=== PATIENT | male | born 1945 | race Caucasian/White ===

== ENCOUNTER 2018-01-11 18:51 | Inpatient (IN) ==
[~2018-01-11 18:51] MED LIST: Iohexol 350 MG/ML 100 ML Vial (for Cath Lab) IVCONTRAST ONE
[2018-01-11] MEDS ORDERED: Sodium Chlor 0.9% Inj 500 ML IV.SIG ONE (19:05)
[2018-01-11] MEDS ORDERED: Morphine Inj 4 MG/ML Vial IV.PUSH ONE (19:05)
[2018-01-11] MEDS ORDERED: Heparin 10,000 UNITS/10 ML Vial (for IV use) IV.PUSH ONE (19:21)
[2018-01-11] MEDS ORDERED: Nitroglycerin Drip Premix 50 MG/250 ML BOTTLE IV.CONT PRN (19:22)
[2018-01-11 19:32] LABS: Chloride 101 meq/L (98-107); Potassium 4.2 meq/L (3.5-5.1); Sodium 133 meq/L (136-145)
[2018-01-11 19:35] LABS: Calcium 8.5 mg/dL (8.5-10.1)
[2018-01-11 19:36] LABS: Albumin 3.4 g/dL (3.4-5.0); Anion Gap 7 meq/L (5-15); Blood Urea Nitrogen 8 mg/dL (7-18); Carbon Dioxide 25.1 meq/L (21.0-32.0); Glucose,Random 293 mg/dL (74-106)
[2018-01-11 19:39] LABS: Alanine Aminotransferase 28 U/L (12-78); Aspartate Aminotransferase 32 U/L (15-37); Glomerular Filtration Rate 73 mL/min (>89)
[2018-01-11 19:40] LABS: Total Protein 7.6 g/dL (6.4-8.2)
--- NOTE | 2018-01-11 19:40 | ED ---
HPI General Chief Complaint: Chest Pain Stated Complaint: chest pain Time Seen by Provider: 01/11/18 19:20 Source: patient Mode of arrival: ambulatory Limitations: no limitations History of Present Illness HPI narrative: 72-year-old male came to the emergency room along with his family with history of severe substernal chest pain that has been continuously going on for past 4 hours. Patient describes the pain as "2 cinderblocks thumping on his chest". He says the pain is there at rest. He has been having similar pain off and on for past 2-3 days. Initially they would occur spontaneously and go away but this time it continued on. No radiation of the pain. No aggravating or relieving symptoms identified. No associated symptoms like shortness of breath, diaphoresis, nausea or vomiting. Patient has history of diabetes and is supposed to take metformin but has not taken it for many months. He does not know of any other medical problems. His blood pressure upon arrival was 190 systolic. Patient moved from [place] [facility]. His last stress test was 10-15 years ago. No known coronary artery disease history. Patient is a smoker 1 pack/day for 50 years. complaint: Reports chest pain STEMI Alert: Yes Onset (ago): hour(s) Time: 19:02 Duration: constant Onset: during rest Pain location: Reports substernal Severity: severe Severity scale (1-10): 6 Quality: Reports dull Pain radiation: Reports none Relieving factors: nothing Exacerbating factors: nothing Context: Reports other Associated symptoms: Reports other Treatments prior to arrival chest pain: Reports none Related Data Home Medications Medication Instructions Recorded Confirmed No Known Home Medications 01/11/18 01/11/18 Allergies Allergy/AdvReac Type Severity Reaction Status Date / Time No Known Allergies Allergy Verified 01/11/18 19:02 Review of Systems ROS: all other systems reviewed are negative Cardiovascular Reports chest pain PMFSH Medical History Medical History Hx of diabetes mellitus (Acute) Surgical History Surgical History Hx of knee surgery (Acute) Hx of tonsillectomy (Acute) Family History Family History Father Family history of acute myocardial infarction Social History Social History Substance History: No History of Abuse Second Hand Smoke Exposure: Yes Smoking Status: Current every day smoker Tobacco Type: Cigarettes How Often Do You Have a Drink Containing Alcohol: 2 to 4 times a month Recent Travel in [facility] within the Last 8 Weeks: No Recent Out of Country Travel within the Last 8 Weeks: No Immunization History Tetanus Immunization: Unsure Exam Narrative Exam Narrative: GENERAL: Awake, alert, anxious, moderate distress SKIN: Focused skin assessment warm/dry. HEAD: Atraumatic. Normocephalic. EYES: Pupils equal and round. No scleral icterus. No injection or drainage. ENT: No nasal bleeding or discharge. Mucous membranes pink and moist. NECK: Trachea midline. No JVD. CARDIOVASCULAR: Regular rate and rhythm. No murmur appreciated. RESPIRATORY: No accessory muscle use. Clear to auscultation. Breath sounds equal bilaterally. GASTROINTESTINAL: Abdomen soft, non-tender, nondistended. Hepatic and splenic margins not palpable. MUSCULOSKELETAL: No obvious deformities. No clubbing. No cyanosis. No edema. NEUROLOGICAL: Awake and alert. No obvious cranial nerve deficits. Motor grossly within normal limits. Normal speech. PSYCHIATRIC: Appropriate mood and affect; insight and judgment normal. Course Initial Documented Vital Signs Temperature 97.6 F 01/11/18 18:56 Pulse Rate 88 01/11/18 18:56 Respiratory Rate 18 01/11/18 18:56 Blood Pressure 189/104 H 01/11/18 18:56 Pulse Oximetry 97 01/11/18 18:56 Last Documented Vital Signs Temperature 98.0 F 01/14/18 16:00 Pulse Rate 63 01/14/18 18:00 Respiratory Rate 16 01/14/18 16:00 Blood Pressure 132/55 L 01/14/18 16:00 Pulse Oximetry 97 01/14/18 19:29 Critical Care Time Critical Care Time: Yes Total Critical Care Time: 45 Attestation: Aggregate critical care time was 45 minutes. Time to perform other separately billable procedures was not included in the critical care time. My time did not include minutes spent treating any other patients simultaneously or on activities that did not directly contribute to the patient's treatment. The services I provided to this patient were to treat and/or prevent clinically significant deterioration that could result in: STEMI alert I provided critical care services requiring my management, as noted below: Chart data review, documentation time, medication orders and management, vital sign assessments/reviewing monitor data, ordering and reviewing lab tests, ordering and interpreting/reviewing x-rays and diagnostic studies, care of the patient and discussion of the patient with the admitting physicians. Medical Decision Making MDM Narrative Medical decision making narrative: 7:55 PM based on the initial EKG I discussed with the central supply tech immediately. It was Dr. Metz who was on for STEMI. I expressed to him my concern regarding an inferior and a possible posterior STEMI. After looking at the EKG which was electronically transmitted to him he agreed and asked to call a STEMI alert. Patient was given 2 baby aspirins and 1 sublingual nitro. After that his chest pain significantly improved and was down to 1. Blood pressure was 155 systolic. He was started on a nitro drip and EMS was called for emergent transfer to the Lead Systems Engineer. Patient for a brief 10 minutes went into atrial flutter with 2 is to 1 block. I had ordered a bolus of 15 mg of Cardizem but before it was pushed patient spontaneously changed into normal sinus rhythm. Patient was sent emergently to the [facility] Systems [facility]. He remained hemodynamically stable and GCS of 15. Patient and his family was informed about his condition and the plan and I answered all the questions to the best of my ability. Medical Screen Exam Complete: Yes Emergency Medical Condition: Yes Lab Data Result diagrams: 01/12/18 13:32 01/12/18 13:32 Lab Results 01/11/18 01/11/18 01/11/18 Range/Units 19:15 19:15 19:15 CBC w Diff Auto diff final WBC 10.1 (4.0-11.0) th/mm3 RBC 4.84 (4.50-5.90) mil/mm3 Hgb 15.2 (13.0-17.0) gm/dL Hct 43.8 (39.0-51.0) % MCV 90.5 (80.0-100.0) fL MCH 31.4 (27.0-34.0) pg MCHC 34.7 (32.0-36.0) % RDW 12.4 (11.6-17.2) % Plt Count 352 (150-450) th/mm3 MPV 9.4 (7.0-11.0) fL Neut % (Auto) 65.6 (16.0-70.0) % Lymph % (Auto) 23.0 (9.0-44.0) % Amador % (Auto) 8.9 H (0.0-8.0) % Eos % (Auto) 1.3 (0.0-4.0) % Baso % (Auto) 1.2 (0.0-2.0) % Neut # (Auto) 6.8 (1.8-7.7) th/mm3 Lymph # (Auto) 2.3 (1.0-4.8) th/mm3 Amador # (Auto) 0.9 (0.0-0.9) th/mm3 Eos # (Auto) 0.1 (0.0-0.4) th/mm3 Baso # (Auto) 0.1 (0.0-0.2) th/mm3 WBC Differential . Differential Comment . PT 10.6 (9.8-11.6) sec INR 1.0 Ratio APTT 27.8 (24.3-30.1) sec Sodium (136-145) meq/L Potassium (3.5-5.1) meq/L Chloride (98-107) meq/L Carbon Dioxide (21.0-32.0) meq/L Anion Gap (5-15) meq/L BUN (7-18) mg/dL Creatinine (0.60-1.30) mg/dL Estimated GFR (>89) mL/min POC Glucose (68-110) mg/dl Random Glucose (74-106) mg/dL Hemoglobin A1c (4.3-6.0) % Calcium (8.5-10.1) mg/dL Magnesium (1.5-2.5) mg/dL Total Bilirubin (0.2-1.0) mg/dL AST (15-37) U/L ALT (12-78) U/L Alkaline Phosphatase (45-117) U/L Total Creatine Kinase (39-308) U/L CK-MB (CK-2) (0.5-3.6) ng/mL Troponin I (0.02-0.05) ng/mL B-Natriuretic Peptide 45 (0-100) pg/mL Total Protein (6.4-8.2) g/dL Albumin (3.4-5.0) g/dL Triglycerides (42-150) mg/dL Cholesterol (120-200) mg/dL LDL Cholesterol, Calc (0-99) mg/dL HDL Cholesterol (40.0-60.0) mg/dL Cholesterol/HDL Ratio Ratio 01/11/18 01/12/18 01/12/18 Range/Units 19:15 08:46 13:32 CBC w Diff WBC 8.7 (4.0-11.0) th/mm3 RBC 4.02 L (4.50-5.90) mil/mm3 Hgb 12.6 L D (13.0-17.0) gm/dL Hct 37.0 L (39.0-51.0) % MCV 92.0 (80.0-100.0) fL MCH 31.4 (27.0-34.0) pg MCHC 34.1 (32.0-36.0) % RDW 13.1 (11.6-17.2) % Plt Count 261 (150-450) th/mm3 MPV 8.8 (7.0-11.0) fL Neut % (Auto) 60.2 (16.0-70.0) % Lymph % (Auto) 27.8 (9.0-44.0) % Amador % (Auto) 10.2 H (0.0-8.0) % Eos % (Auto) 1.3 (0.0-4.0) % Baso % (Auto) 0.5 (0.0-2.0) % Neut # (Auto) 5.2 (1.8-7.7) th/mm3 Lymph # (Auto) 2.4 (1.0-4.8) th/mm3 Amador # (Auto) 0.9 (0.0-0.9) th/mm3 Eos # (Auto) 0.1 (0.0-0.4) th/mm3 Baso # (Auto) 0.0 (0.0-0.2) th/mm3 WBC Differential . Differential Comment Auto diff final PT (9.8-11.6) sec INR Ratio APTT (24.3-30.1) sec Sodium 133 L (136-145) meq/L Potassium 4.2 (3.5-5.1) meq/L Chloride 101 (98-107) meq/L Carbon Dioxide 25.1 (21.0-32.0) meq/L Anion Gap 7 (5-15) meq/L BUN 8 (7-18) mg/dL Creatinine 1.00 (0.60-1.30) mg/dL Estimated GFR 73 L (>89) mL/min POC Glucose 240 H (68-110) mg/dl Random Glucose 293 H (74-106) mg/dL Hemoglobin A1c (4.3-6.0) % Calcium 8.5 (8.5-10.1) mg/dL Magnesium (1.5-2.5) mg/dL Total Bilirubin 0.3 (0.2-1.0) mg/dL AST 32 (15-37) U/L ALT 28 (12-78) U/L Alkaline Phosphatase 64 (45-117) U/L Total Creatine Kinase 208 (39-308) U/L CK-MB (CK-2) 15.1 H (0.5-3.6) ng/mL Troponin I 1.26 H* (0.02-0.05) ng/mL B-Natriuretic Peptide (0-100) pg/mL Total Protein 7.6 (6.4-8.2) g/dL Albumin 3.4 (3.4-5.0) g/dL Triglycerides (42-150) mg/dL Cholesterol (120-200) mg/dL LDL Cholesterol, Calc (0-99) mg/dL HDL Cholesterol (40.0-60.0) mg/dL Cholesterol/HDL Ratio Ratio 01/12/18 01/12/18 01/12/18 Range/Units 13:32 13:32 22:08 CBC w Diff WBC (4.0-11.0) th/mm3 RBC (4.50-5.90) mil/mm3 Hgb (13.0-17.0) gm/dL Hct (39.0-51.0) % MCV (80.0-100.0) fL MCH (27.0-34.0) pg MCHC (32.0-36.0) % RDW (11.6-17.2) % Plt Count (150-450) th/mm3 MPV (7.0-11.0) fL Neut % (Auto) (16.0-70.0) % Lymph % (Auto) (9.0-44.0) % Amador % (Auto) (0.0-8.0) % Eos % (Auto) (0.0-4.0) % Baso % (Auto) (0.0-2.0) % Neut # (Auto) (1.8-7.7) th/mm3 Lymph # (Auto) (1.0-4.8) th/mm3 Amador # (Auto) (0.0-0.9) th/mm3 Eos # (Auto) (0.0-0.4) th/mm3 Baso # (Auto) (0.0-0.2) th/mm3 WBC Differential Differential Comment PT (9.8-11.6) sec INR Ratio APTT (24.3-30.1) sec Sodium 138 (136-145) meq/L Potassium 4.1 (3.5-5.1) meq/L Chloride 108 H (98-107) meq/L Carbon Dioxide 24.1 (21.0-32.0) meq/L Anion Gap 6 (5-15) meq/L BUN 6 L (7-18) mg/dL Creatinine 0.92 (0.60-1.30) mg/dL Estimated GFR 81 L (>89) mL/min POC Glucose 196 H (68-110) mg/dl Random Glucose 246 H (74-106) mg/dL Hemoglobin A1c (4.3-6.0) % Calcium 7.7 L D (8.5-10.1) mg/dL Magnesium 1.8 (1.5-2.5) mg/dL Total Bilirubin (0.2-1.0) mg/dL AST (15-37) U/L ALT (12-78) U/L Alkaline Phosphatase (45-117) U/L Total Creatine Kinase (39-308) U/L CK-MB (CK-2) (0.5-3.6) ng/mL Troponin I (0.02-0.05) ng/mL B-Natriuretic Peptide (0-100) pg/mL Total Protein (6.4-8.2) g/dL Albumin (3.4-5.0) g/dL Triglycerides 173 H (42-150) mg/dL Cholesterol 140 (120-200) mg/dL LDL Cholesterol, Calc 75 (0-99) mg/dL HDL Cholesterol 30.3 L (40.0-60.0) mg/dL Cholesterol/HDL Ratio 4.62 Ratio 01/13/18 01/13/18 01/13/18 Range/Units 02:49 07:56 11:57 CBC w Diff WBC (4.0-11.0) th/mm3 RBC (4.50-5.90) mil/mm3 Hgb (13.0-17.0) gm/dL Hct (39.0-51.0) % MCV (80.0-100.0) fL MCH (27.0-34.0) pg MCHC (32.0-36.0) % RDW (11.6-17.2) % Plt Count (150-450) th/mm3 MPV (7.0-11.0) fL Neut % (Auto) (16.0-70.0) % Lymph % (Auto) (9.0-44.0) % Amador % (Auto) (0.0-8.0) % Eos % (Auto) (0.0-4.0) % Baso % (Auto) (0.0-2.0) % Neut # (Auto) (1.8-7.7) th/mm3 Lymph # (Auto) (1.0-4.8) th/mm3 Amador # (Auto) (0.0-0.9) th/mm3 Eos # (Auto) (0.0-0.4) th/mm3 Baso # (Auto) (0.0-0.2) th/mm3 WBC Differential Differential Comment PT (9.8-11.6) sec INR Ratio APTT (24.3-30.1) sec Sodium (136-145) meq/L Potassium (3.5-5.1) meq/L Chloride (98-107) meq/L Carbon Dioxide (21.0-32.0) meq/L Anion Gap (5-15) meq/L BUN (7-18) mg/dL Creatinine (0.60-1.30) mg/dL Estimated GFR (>89) mL/min POC Glucose 176 H 208 H 201 H (68-110) mg/dl Random Glucose (74-106) mg/dL Hemoglobin A1c (4.3-6.0) % Calcium (8.5-10.1) mg/dL Magnesium (1.5-2.5) mg/dL Total Bilirubin (0.2-1.0) mg/dL AST (15-37) U/L ALT (12-78) U/L Alkaline Phosphatase (45-117) U/L Total Creatine Kinase (39-308) U/L CK-MB (CK-2) (0.5-3.6) ng/mL Troponin I (0.02-0.05) ng/mL B-Natriuretic Peptide (0-100) pg/mL Total Protein (6.4-8.2) g/dL Albumin (3.4-5.0) g/dL Triglycerides (42-150) mg/dL Cholesterol (120-200) mg/dL LDL Cholesterol, Calc (0-99) mg/dL HDL Cholesterol (40.0-60.0) mg/dL Cholesterol/HDL Ratio Ratio 01/13/18 01/13/18 01/13/18 Range/Units 16:00 16:14 21:05 CBC w Diff WBC (4.0-11.0) th/mm3 RBC (4.50-5.90) mil/mm3 Hgb (13.0-17.0) gm/dL Hct (39.0-51.0) % MCV (80.0-100.0) fL MCH (27.0-34.0) pg MCHC (32.0-36.0) % RDW (11.6-17.2) % Plt Count (150-450) th/mm3 MPV (7.0-11.0) fL Neut % (Auto) (16.0-70.0) % Lymph % (Auto) (9.0-44.0) % Amador % (Auto) (0.0-8.0) % Eos % (Auto) (0.0-4.0) % Baso % (Auto) (0.0-2.0) % Neut # (Auto) (1.8-7.7) th/mm3 Lymph # (Auto) (1.0-4.8) th/mm3 Amador # (Auto) (0.0-0.9) th/mm3 Eos # (Auto) (0.0-0.4) th/mm3 Baso # (Auto) (0.0-0.2) th/mm3 WBC Differential Differential Comment PT (9.8-11.6) sec INR Ratio APTT (24.3-30.1) sec Sodium (136-145) meq/L Potassium (3.5-5.1) meq/L Chloride (98-107) meq/L Carbon Dioxide (21.0-32.0) meq/L Anion Gap (5-15) meq/L BUN (7-18) mg/dL Creatinine (0.60-1.30) mg/dL Estimated GFR (>89) mL/min POC Glucose 130 H 218 H (68-110) mg/dl Random Glucose (74-106) mg/dL Hemoglobin A1c 9.3 H (4.3-6.0) % Calcium (8.5-10.1) mg/dL Magnesium (1.5-2.5) mg/dL Total Bilirubin (0.2-1.0) mg/dL AST (15-37) U/L ALT (12-78) U/L Alkaline Phosphatase (45-117) U/L Total Creatine Kinase (39-308) U/L CK-MB (CK-2) (0.5-3.6) ng/mL Troponin I (0.02-0.05) ng/mL B-Natriuretic Peptide (0-100) pg/mL Total Protein (6.4-8.2) g/dL Albumin (3.4-5.0) g/dL Triglycerides (42-150) mg/dL Cholesterol (120-200) mg/dL LDL Cholesterol, Calc (0-99) mg/dL HDL Cholesterol (40.0-60.0) mg/dL Cholesterol/HDL Ratio Ratio 01/14/18 01/14/18 01/14/18 Range/Units 03:51 08:17 11:12 CBC w Diff WBC (4.0-11.0) th/mm3 RBC (4.50-5.90) mil/mm3 Hgb (13.0-17.0) gm/dL Hct (39.0-51.0) % MCV (80.0-100.0) fL MCH (27.0-34.0) pg MCHC (32.0-36.0) % RDW (11.6-17.2) % Plt Count (150-450) th/mm3 MPV (7.0-11.0) fL Neut % (Auto) (16.0-70.0) % Lymph % (Auto) (9.0-44.0) % Amador % (Auto) (0.0-8.0) % Eos % (Auto) (0.0-4.0) % Baso % (Auto) (0.0-2.0) % Neut # (Auto) (1.8-7.7) th/mm3 Lymph # (Auto) (1.0-4.8) th/mm3 Amador # (Auto) (0.0-0.9) th/mm3 Eos # (Auto) (0.0-0.4) th/mm3 Baso # (Auto) (0.0-0.2) th/mm3 WBC Differential Differential Comment PT (9.8-11.6) sec INR Ratio APTT (24.3-30.1) sec Sodium (136-145) meq/L Potassium (3.5-5.1) meq/L Chloride (98-107) meq/L Carbon Dioxide (21.0-32.0) meq/L Anion Gap (5-15) meq/L BUN (7-18) mg/dL Creatinine (0.60-1.30) mg/dL Estimated GFR (>89) mL/min POC Glucose 129 H 200 H 172 H (68-110) mg/dl Random Glucose (74-106) mg/dL Hemoglobin A1c (4.3-6.0) % Calcium (8.5-10.1) mg/dL Magnesium (1.5-2.5) mg/dL Total Bilirubin (0.2-1.0) mg/dL AST (15-37) U/L ALT (12-78) U/L Alkaline Phosphatase (45-117) U/L Total Creatine Kinase (39-308) U/L CK-MB (CK-2) (0.5-3.6) ng/mL Troponin I (0.02-0.05) ng/mL B-Natriuretic Peptide (0-100) pg/mL Total Protein (6.4-8.2) g/dL Albumin (3.4-5.0) g/dL Triglycerides (42-150) mg/dL Cholesterol (120-200) mg/dL LDL Cholesterol, Calc (0-99) mg/dL HDL Cholesterol (40.0-60.0) mg/dL Cholesterol/HDL Ratio Ratio 01/14/18 01/14/18 Range/Units 15:28 20:43 CBC w Diff WBC (4.0-11.0) th/mm3 RBC (4.50-5.90) mil/mm3 Hgb (13.0-17.0) gm/dL Hct (39.0-51.0) % MCV (80.0-100.0) fL MCH (27.0-34.0) pg MCHC (32.0-36.0) % RDW (11.6-17.2) % Plt Count (150-450) th/mm3 MPV (7.0-11.0) fL Neut % (Auto) (16.0-70.0) % Lymph % (Auto) (9.0-44.0) % Amador % (Auto) (0.0-8.0) % Eos % (Auto) (0.0-4.0) % Baso % (Auto) (0.0-2.0) % Neut # (Auto) (1.8-7.7) th/mm3 Lymph # (Auto) (1.0-4.8) th/mm3 Amador # (Auto) (0.0-0.9) th/mm3 Eos # (Auto) (0.0-0.4) th/mm3 Baso # (Auto) (0.0-0.2) th/mm3 WBC Differential Differential Comment PT (9.8-11.6) sec INR Ratio APTT (24.3-30.1) sec Sodium (136-145) meq/L Potassium (3.5-5.1) meq/L Chloride (98-107) meq/L Carbon Dioxide (21.0-32.0) meq/L Anion Gap (5-15) meq/L BUN (7-18) mg/dL Creatinine (0.60-1.30) mg/dL Estimated GFR (>89) mL/min POC Glucose 92 119 H (68-110) mg/dl Random Glucose (74-106) mg/dL Hemoglobin A1c (4.3-6.0) % Calcium (8.5-10.1) mg/dL Magnesium (1.5-2.5) mg/dL Total Bilirubin (0.2-1.0) mg/dL AST (15-37) U/L ALT (12-78) U/L Alkaline Phosphatase (45-117) U/L Total Creatine Kinase (39-308) U/L CK-MB (CK-2) (0.5-3.6) ng/mL Troponin I (0.02-0.05) ng/mL B-Natriuretic Peptide (0-100) pg/mL Total Protein (6.4-8.2) g/dL Albumin (3.4-5.0) g/dL Triglycerides (42-150) mg/dL Cholesterol (120-200) mg/dL LDL Cholesterol, Calc (0-99) mg/dL HDL Cholesterol (40.0-60.0) mg/dL Cholesterol/HDL Ratio Ratio Imaging Data Radiologist's impression: Chest X-Ray 01/11/18 19:03 CONCLUSION: No infiltrate or effusion. Mild interstitial prominence. No prior study for comparison. ECG Data Attestation: I personally reviewed and interpreted this ECG as follows: Interpretation: Twelve-lead EKG was reviewed by me. Bigeminy, ST elevations in the inferior lead with reciprocal depressions in the anterior lateral leads. Heart rate of 65 bpm. Discharge Plan Discharge Disposition Patient Disposition: [facility] Patient Physicians Team ED Provider: Di Aguirre Primary Care Provider: UNKNOWN, Attending Provider: Estephanie Jeffrey Other Providers: Brad Metz Discharge Interventions Interventions: ED Discharge Assessment Last Done: 01/11/18 19:45 Status ED Status: Left Department Discharge Information Discharge Date/Time: 01/11/18 19:45
[2018-01-11 19:41] LABS: Activated Partial Thrombo Time 27.8 sec (24.3-30.1); Creatine Kinase 208 U/L (39-308); Prothrombin Time 10.6 sec (9.8-11.6)
[2018-01-11 19:42] LABS: Alkaline Phosphatase 64 U/L (45-117)
[2018-01-11 19:54] LABS: Creatine Kinase MB 15.1 ng/mL (0.5-3.6)
[2018-01-11] MEDS ORDERED: Heparin/NS PF Inj 1,000 ML ONE (19:55)
[2018-01-11 19:57] LABS: Baso # (Auto) 0.1 th/mm3 (0.0-0.2); Baso % (Auto) 1.2 % (0.0-2.0); Eos # (Auto) 0.1 th/mm3 (0.0-0.4); Eos % (Auto) 1.3 % (0.0-4.0); Hematocrit 43.8 % (39.0-51.0); Hemoglobin 15.2 gm/dL (13.0-17.0); Lymph # (Auto) 2.3 th/mm3 (1.0-4.8); Mean Corpuscular HGB Conc 34.7 % (32.0-36.0); Mean Corpuscular Hemoglobin 31.4 pg (27.0-34.0); Mean Corpuscular Volume 90.5 fL (80.0-100.0); Mean Platelet Volume 9.4 fL (7.0-11.0); Mono # (Auto) 0.9 th/mm3 (0.0-0.9); Mono % (Auto) 8.9 % (0.0-8.0); Neut # (Auto) 6.8 th/mm3 (1.8-7.7); Neut % (Auto) 65.6 % (16.0-70.0); Platelet Count 352 th/mm3 (150-450); Red Blood Count 4.84 mil/mm3 (4.50-5.90); Red Cell Distribution Width 12.4 % (11.6-17.2); White Blood Count 10.1 th/mm3 (4.0-11.0)
--- NOTE | 2018-01-11 19:57 | XR ---
EXAM DATE: 01/11/2018 7:29 PM EDT AGE/SEX: 72 years / Male INDICATIONS: Chest pain. CLINICAL DATA: This is the patient's initial encounter. Patient reports that signs and symptoms have been present for 1 day and indicates a pain score of 4/10. MEDICAL/SURGICAL HISTORY: None. None. COMPARISON: No prior exams available for comparison. FINDINGS: A single AP view of the chest demonstrates the lungs to be symmetrically aerated without evidence of mass, infiltrate or effusion. Mild interstitial prominence. Mild pleural thickening. The cardiomedias tinal contours are unremarkable. Osseous structures are intact. CONCLUSION: No infiltrate or effusion. Mild interstitial prominence. No prior study for comparison. Electronically signed by: All Veras MD 01/11/2018 7:56 PM EDT
[2018-01-11 19:58] LABS: Troponin I 1.26 ng/mL (0.02-0.05)
[2018-01-11] MEDS ORDERED: fentaNYL Citrate Inj 100 MCG/2 ML Ampul ONE (19:59)
[2018-01-11] MEDS ORDERED: Heparin 10,000 UNITS/10 ML Vial (for IV use) ONE (19:59)
[2018-01-11] MEDS ORDERED: TIROFIBAN ONE (20:47)
[2018-01-11] MEDS ORDERED: Temazepam 15 MG Capsule PO PRN (21:09)
[2018-01-11] MEDS ORDERED: oxyCODONE/Acetaminophen 10/325 Tablet PO PRN (21:09)
[2018-01-11] MEDS ORDERED: Acetaminophen 325 MG Tablet PO PRN (21:09)
--- NOTE | 2018-01-11 21:16 | MH ---
cc: Brad Metz MD DATE OF ADMISSION: 01/11/2018 ADMISSION DIAGNOSES: 1. Acute inferior ST segment elevation myocardial infarction. 2. Paroxysmal atrial flutter. 3. Type 2 diabetes mellitus. 4. Noncompliance with medications and physician followup. 5. Longstanding tobacco abuse. 6. Suspected interstitial lung disease. CHIEF COMPLAINT: Substernal chest pain. HISTORY OF PRESENT ILLNESS: This is a 72-year-old man, a chronic smoker, diabetic, noncompliant with medications, who moved here from [place] but has not followed up with any physicians and is not taking any of his medications. He describes the pain as 2 cinder block thumping on his chest. It has been going on and off for a few days and became constant today at about 5:30 p.m. Initial EKG in [place] shows sinus rhythm with ventricular bigeminy and acute inferior infarction. There are Q-waves that already have developed in the inferior leads with ST elevation inferiorly and reciprocal ST depression in I, aVL, but also V2 through V5, i.e., the only leads that do not show ST shifting are leads aVR, V1 and V6, making this a high risk infarct. Subsequent EKG shows atrial flutter with 2:[address] abnormalities are still present, but not as pronounced. He received nitroglycerin and aspirin prior to transfer. His chest pain was 1 en route. He has received a 5000 unit heparin bolus as well as chewable aspirin p.o. PAST MEDICAL HISTORY: Includes diabetes. He has been noncompliant with medications for 1-1/2 years. Chronic tobacco use, 1 pack a day for 50 years. Suspect interstitial lung disease from the chest x-ray. No prior history of hypertension, although blood pressure is noted to be elevated here. No prior history of arrhythmias, but has had palpitations in the last 24 hours and he has documented bigeminy and atrial flutter. 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 SOCIAL HISTORY: He has 1-2 drinks 2-4 times a month. He is with 3 children and multiple grandchildren. He smokes, as described above. FAMILY HISTORY: His father at 69 of heart disease. REVIEW OF SYSTEMS: Denies any bleeding of any kind, GI bleeding or bleeding. Remaining review of systems negative. PHYSICAL EXAMINATION: GENERAL: Well-developed, well-nourished man in no acute distress. HEENT: Male pattern balding. Atraumatic. NECK: Shows no JVD, no bruits. CHEST: Clear to auscultation. CARDIOVASCULAR: S1, S2. Regular rate and rhythm. I do not appreciate murmurs or gallops at this time. ABDOMEN: Soft, nontender. No masses or organomegaly. EXTREMITIES: No clubbing, cyanosis or edema. Pulses are intact. NEUROLOGIC: Alert and oriented. No focal deficits. PSYCHIATRIC: Appropriate mood and affect. LABORATORY DATA: CBC is still pending. INR and PTT are normal. Creatinine is 1.00. He has glucose elevated at 293. Troponin is pending. AST, ALT and alkaline phosphatase are normal. CPK is normal at 208. Chest x-ray formal reading is pending. By my reading, it shows normal heart size and increased interstitial markings. IMPRESSION: Acute inferior ST-elevation myocardial infarction. PLAN: Perform emergency cardiac catheterization and possible intervention. MD SUBHA Lin/akrrie , 08:15 PM , 08:24 PM
--- NOTE | 2018-01-11 21:18 | CATHPROC ---
[employer] HIS Report Study Information Study Number Admission Scheduled Start Study Start [id number] Jan 11 2018 6:51PM 01/11/2018 Jan 11 2018 8:00PM [facility] Service Cardiac Catheterization Admit Source Facility Department Transfer in from another acute care facility [facility] Consultant Physician and Clinical Staff Initial Brad Rice Making Machine Catcher Saida Ty Making Machine Catcher Myriam Estrada,RN Recorder Claire, Lizzy,DEPARTMENT OF MATHEMATICS CHAIR TECH2 Scrub Agnieszka Cantrell,RT(R) (BS) Procedures Performed Procedure Location (Site) Vessel Name Angiogram LV LV Ventricle Coronary Angiograms LCA Left Coronary Coronary Angiograms RCA Right Coronary Drug Eluting Inflatio CIRC Dist CIRC Wire insertion Radial (right) Radial Art. Equipment Time Fish Net Stringer Description Size Mfg Part Number Used/Scraped WIRE, BALANCE MIDDLEWEIGHT [id number] 20:28 [employer] 190CM Used 190CM *[id number] TRANSDUCER, TRUWAVE [id number] 20:23 HAGAN ERAZO * Used W/STOCKCOCK *[id number] *[id number] PIGTAIL ANG. 145 INFINITI 534-652S CATHETER *[id number] *[id number] 20:23 MALLINCKRODT SYRINGE, ANGIOMAT 150ML 150ML *[id number] Used 2SUB [id number] 20:23 Envivio BLANKET,WARM AIR CCL * Used *[id number] 20:23 Envivio PACK, CCL CUSTOM * Used *[id number] 20:23 Envivio SUPPORT, ARTERIAL ADULT 86050 *[id number] Used [id number] 20:23 Spinal Simplicity PACER PEN, SKIN DUAL W/ RULER * Used *[id number] 20:32 MEDTRONIC STENT, 3.5 18MM PAMELA 3.5 18MM Used *[id number] 20:37 [employer]estone [employer] 30 LEANA INDEFLATOR Used *[id number] BAND, RADIAL COMPRESSION TR [id number] 20:31 Triplify MEDICAL 24CM Used SHORT 24 *[id number] 20:23 Milestone Scientific WIRE, EXCHANGE 260CM 3MMJ 260CM Used *[id number] 20:23 NAMIC MANIFOLD, 4 PORT * Used *[id number] 20:23 NYCOMED OMNIPAQUE, 350 MG, 100ML 100ML [id number] Used 20:02 NYCOMED OMNIPAQUE, 350 MG, 150ML 150ML [id number] Used 20:23 NYCOMED OMNIPAQUE, 350 MG, 50ML 50ML [id number] Used 20:23 [employer] JELCO NEEDLE 4056 *[id number] Used CATHETER, FR5 OPTITORQUE [id number] 20:26 TERUMO [employer]ICAL FR 5 Used RADIAL TIG 4.0 *[id number] SHEATH, FR6 TRANSRADIAL [id number] 20:23 TERUMO [employer]ICAL FR 6 Used SLENDER 10CM *[id number] Equipment Model, Serial, Lot Number and Expiration Data Description Model Number Serial Number Lot Number Expiration Date STENT, 3.5 18MM PAMELA [id number] 05-17-2019 History: Current Medications Medication Dosage/Unit Route Frequency Last Date/Time Taken Glucophage History: Allergies Allergy Reaction No Known Allergies History: Risk Factors Family History of Hypertension Dyslipidemia Previous [place] Previous Heart Failure Premature CAD No No Yes No No Prior Valve Prior PCI Prior CABG Surgery No No No Cerebrovascular Peripheral Artery Chronic Lung On Dialysis Diabetes Diabetes Therapy Disease Disease Disease No No No No Yes Oral History: Symptoms/Diagnosis Selection Items Chest pain History: Stress Tests Stress or Imaging Studies Performed No History: Other Current Smoker Method Packs a Day Years Used Pack Years Yes Cigarettes 1 50 50 Labs Hgb (g/dl) Hct (%) WBC (l/cumm) Platelets (thousands) 11.60-17.00 35.00-51.00 4.00-11.00 150.00-450.00 15.2 43.8 10.1 352 Glucose (mg/dl) BUN (mg/dl) Creatinine (mg/dl) BUN:Creatinine (1:x) 74.00-106.00 7.00-18.00 0.50-1.30 10.00-20.00 293 8 1.0 8 Na (meq/l) K (meq/l) Cl (meq/l) CO2 (mmol/L) Ca (mg/dl) 136.00-145.00 3.50-5.10 98.00-107.00 21.00-32.00 8.50-10.10 133 4.2 101 25.1 8.5 PT (sec) INR (PTT:PT) 9.80-11.60 0.90-1.10 10.6 1 Troponin I (ng/ml) CPK (u/l) CPK-MB (ng/ML) 0.02-0.05 26.00-308.00 0.50-3.60 1.26 208 15.1 Medication Medication Total Dose (Bolus/Oral) Medication Total Dosage/Unit 1% XYLOCAINE 5 mL AGGRASTAT BOLUS 42 mL (Bolus) BRILINTA 180 mg HEPARIN 3000 units MORPHINE 6 mg NTG (IC) 100 mcg RADIAL COCKTAIL 5 mL (Bolus) VERSED 3 mg Medications (Bolus/Oral) Medication Time Given Dosage/Unit Administered By Reason VERSED 01/11/2018 8:18:28 PM 1 mg Myriam Estrada 1 mg VERSED given in lab by Myriam Estrada, RN in Right Antecubital via Peripheral IV. Ordered by Brad Andrews. VERSED 01/11/2018 8:20:11 PM 1 mg Saida Ty 1 mg VERSED given in lab by Saida Ty in Right Antecubital via Peripheral IV. Ordered by Brad Metz. 1% XYLOCAINE 01/11/2018 8:20:29 PM 5 mL Brad Metz 5 mL 1% XYLOCAINE given in lab by Brad Metz in Right Radial via Subcutaneous. Ordered by Brad Metz. Ntg 200mcg Verapamil 2.5mg Heparin RADIAL COCKTAIL 01/11/2018 8:22:11 PM 5 mL (Bolus) Brad Metz 2500U 5 mL (Bolus) RADIAL COCKTAIL given in lab by Brad Metz in Right Radial via Radial. Using [Solutio n Name]. Ordered by Brad Metz. Reason: Ntg 200mcg Verapamil 2.5mg Heparin 2500U. HEPARIN 01/11/2018 8:35:21 PM 3000 units Heavenly Tyrra 3000 units HEPARIN given in lab by Saida Ty in Left Antecubital via Peripheral IV. Ordered by Brad Metz. NTG (IC) 01/11/2018 8:38:26 PM 100 mcg Brad Metz 100 mcg NTG (IC) given in lab by Brad Metz via Intra-coronary. Ordered by Brad Metz. MORPHINE 01/11/2018 8:45:19 PM 3 mg Myriam Estrada For pain 3 mg MORPHINE given in lab by Myriam Estrada, RN in Right Antecubital via Peripheral IV. Ordered by Brad Metz. Reason: For pain. VERSED 01/11/2018 8:49:00 PM 1 mg Myriam Estrada 1 mg VERSED given in lab by Myriam Estrada RN in Right Antecubital via Peripheral IV. Ordered by Brad Andrews. MORPHINE 01/11/2018 8:50:06 PM 3 mg Myriam Estrada For pain 3 mg MORPHINE given in lab by Myriam Estrada RN in Right Antecubital via Peripheral IV. Ordered by Brad Metz. Reason: For pain. AGGRASTAT BOLUS 01/11/2018 8:51:25 PM 42 mL (Bolus) Myriam Estrada 42 mL (Bolus) AGGRASTAT BOLUS given in lab by Myriam Estrada RN in Right Antecubital via Peripheral IV. Using [Solution Name]. Ordered by Brad Metz. BRILINTA 01/11/2018 8:54:34 PM 180 mg Myriam Estrada 180 mg BRILINTA given in lab by Myriam Estrada RN via Oral. Ordered by Brad Metz. Medication (Drip) Medication Time Given Dosage/Unit Concentration/Unit Diluent (ml) Solution IV Solutions 01/11/2018 8:13:41 PM 0 mL (IV) 500 NaCl .9 Patient arrived on IV Solutions in Right Antecubital via Peripheral IV. Pump/Drip Flow = 20 ml/hr usi ng NaCl .9. NITROGLYCERIN DRIP 01/11/2018 8:13:42 PM 3 mcg/min 50 mg 250 D5W Patient arrived on 3 mcg/min NITROGLYCERIN DRIP in Left Antecubital via Peripheral IV. Pump/Drip Flow = 0.9 ml/hr using D5W with a concentration of 50 mg in 250 ml. NITROGLYCERIN DRIP 01/11/2018 8:46:05 PM 10 mcg/min 50 mg 250 D5W 10 mcg/min NITROGLYCERIN DRIP increased in lab by Saida Ty in Left Antecubital via Peripheral IV. Pump/Drip Flow = 3 ml/hr using D5W with a concentration of 50 mg in 250 ml. Ordered by Brad Metz. Reason: For pain. drip increased Initial Case Assessment Cardiovascular HR Rhythm NIBP Chest Pain 81 sr 139/71 1 Circulatory - Right Pulses Dorsalis Pedis Femoral Radial 2 2 3 Scale (0,1,2,3,4,d) Scale (0,1,2,3,4,d) Neurological State Oriented to time-place- Alert Moves all extremities person Respiration - General Respiration Rate SpO2 (%) (B/min) 9 98 Final Case Assessment Cardiovascular HR Rhythm NIBP Chest Pain 81 afib 142/76 0 Circulatory - Right Pulses Dorsalis Pedis Femoral Radial 2 2 3 Scale (0,1,2,3,4,d) Scale (0,1,2,3,4,d) Neurological State Oriented to time-place- Alert Moves all extremities person Respiration - General Respiration Rate SpO2 (%) (B/min) 17 99 Chronological Log Time Study Chronological Log 19:55:20 [facility] called, patient on way. 20:04:26 Patient arrived directly from [facility]. 20:04:36 Patient Name, D.O.B, / Armband Verified By R.N. 20:04:38 Pre-op and post- op instructions given; patient acknowledges understanding of instructions. 20:04:40 Verbal Stimulation=2 Physical Stimulation=2 Airway=2 Respiration=2 TOTAL=8. (0=absent, 1=li mited, 2=present) 20:04:52 Presedation assessment performed by [facility] Consultant RN. 20:05:04 paged 20:05:17 arrived. 20:13:04 Right groin and right wrist prepped with 2% chlorhexidine, and draped after a 3 min. waitin g time. Vitals capture started with the following parameters, Patient=Adult, Interval=2 min, Initial Pr dqdyvt=786 mmHg, 20:13:08 Deflation Rate=5 mmHg, Cuff placed on Left Arm 20:13:32 Allens test performed on the right radial and ulnar artery. 20:13:35 Patient has been NPO for More than 6Hrs. 20:13:35 Skin Breakdown-none 20:13:37 Disposable Defibrillator Pads Placed On Patient. 20:13:38 Rhonda Prominences Protected 20:13:39 A # 18 IV was noted in the Antecubital (right). Grade = 0 20:13:41 Patient arrived on IV Solutions in Right Antecubital via Peripheral IV. Pump/Drip Flow = 20 ml/hr using NaCl .9. 20:13:41 A # 20 IV was noted in the Antecubital (left). Grade = 0 Patient arrived on 3 mcg/min NITROGLYCERIN DRIP in Left Antecubital via Peripheral IV. Pump/Dri p Flow = 0.9 ml/hr 20:13:42 using D5W with a concentration of 50 mg in 250 ml. 20:13:44 QX=341 bpm, TXCJ=990/110 mmhg, SpO2=97.0 %, Resp=10 B/min, Pain=1 20:13:44 History and physical on the chart or being dictated. Assessment: Initial Case, HR=81 BPM, Rhythm=sr, CXFT=189/71 mmhg, Chest Pain=1 Right Pulses: Betito Ped=2, Femoral=2, Radial=3 20:14:59 Neurological: State=Alert, Ox3, MEDINA Respiration: Resp=9 B/min, SpO2=98 % 20:16:22 SP=350 bpm, ECGL=118/99 mmhg, SpO2=97.0 %, Resp=15 B/min 20:16:43 Reference ECG taken 20:17:41 Pressure channel 1 zeroed. 20:18:28 1 mg VERSED given in lab by Myriam Estrada, JOYA in Right Antecubital via Peripheral IV. Ord ered by Brad Metz. 20:18:37 HR=77 bpm, YVBG=761/63 mmhg, SpO2=96.0 %, Resp=8 B/min Time Out. Correct patient, correct procedure, correct physician, labs, allergies, and equipment verified with chemistry laboratory technician 20:19:09 team present. Fire risk assesment completed (see hard stop sheet for coding). Time Out Conc urred by MD and individual staff in procedure. 20:19:43 HR=82 bpm, CZWA=867/71 mmhg, SpO2=96.0 %, Resp=8 B/min 20:20:11 1 mg VERSED given in lab by Saida Ty in Right Antecubital via Peripheral IV. Ordered by Brad Metz. 20:20:28 Case Start 20:20:29 5 mL 1% XYLOCAINE given in lab by Brad Metz in Right Radial via Subcutaneous. Ordered b Brad Almaraz. 20:21:15 Access site was Right Radial Artery . A SHEATH, FR6 TRANSRADIAL SLENDER 10CM FR 6 was advanced into the Radial (right) using the Perc utaneous 20:21:21 technique. 20:21:47 YC=774 bpm, WVFP=847/72 mmhg, SpO2=96.0 %, Resp=9 B/min 5 mL (Bolus) RADIAL COCKTAIL given in lab by Brad Metz in Right Radial via Radial. Using [S olution Name]. 20:22:11 Ordered by Brad Metz. Reason: Ntg 200mcg Verapamil 2.5mg Heparin 2500U. 20:23:42 HR=95 bpm, CEWG=154/68 mmhg, SpO2=95.0 %, Resp=10 B/min Recorded Pressure: Ao, HR=96, Condition=Condition 1 20:24:20 (Aorta) Ao 109/62/82 A CATHETER, FR5 OPTITORQUE RADIAL TIG 4.0 FR 5 was advanced over a wire. OMNIPAQUE, 350 MG, 150 ML 150ML 20:25:11 was used for injections. 20:25:43 QD=687 bpm, RLDF=104/73 mmhg, SpO2=94.0 %, Resp=20 B/min 20:26:24 The LCA was injected and visualized at various angles. OMNIPAQUE, 350 MG, 150ML 150ML used . 20:27:44 HR=90 bpm, NLLC=797/65 mmhg, SpO2=94.0 %, Resp=10 B/min 20:27:44 The RCA was injected and visualized at various angles. OMNIPAQUE, 350 MG, 150ML 150ML used . After removing the current catheter a XB 3.5 GUIDE CATHETER FR 6 was advanced over a WIRE, EXCH BRENNAN 260CM 20:27:54 3MMJ 260CM. 20:29:20 The LCA was injected and visualized at various angles. OMNIPAQUE, 350 MG, 150ML 150ML used . 20:29:47 HR=88 bpm, XUWC=560/52 mmhg, SpO2=93.0 %, Resp=11 B/min 20:31:39 HR=87 bpm, UOVB=627/71 mmhg, SpO2=95.0 %, Resp=8 B/min 20:33:14 A WIRE, BALANCE MIDDLEWEIGHT 190CM 190CM was inserted via Radial (right). 20:33:37 Activated Clotting Time Drawn 20:33:46 HR=84 bpm, BGNZ=198/68 mmhg, SpO2=95.0 %, Resp=15 B/min 20:35:21 3000 units HEPARIN given in lab by Saida Ty in Left Antecubital via Peripheral IV. O rdered by Brad Metz. A STENT, 3.5 18MM PAMELA 3.5 18MM was advanced through a XB 3.5 GUIDE CATHETER FR 6 over a WIRE, BALANCE 20:35:34 MIDDLEWEIGHT 190CM 190CM. 20:35:38 ACT (Normal Range 90-180) = 231 20:35:49 HR=85 bpm, VHKZ=356/72 mmhg, SpO2=95.0 %, Resp=8 B/min A STENT, 3.5 18MM PAMELA 3.5 18MM was deployed using a 30 LEANA INDEFLATOR at 12 atmospheres for 30 seconds in 20:37:12 the CIRC Dist. 20:37:59 Delivery device removed 20:38:15 HR=91 bpm, HRDQ=612/90 mmhg, SpO2=97.0 %, Resp=9 B/min 20:38:26 100 mcg NTG (IC) given in lab by Brad Metz via Intra-coronary. Ordered by Brad Metz . 20:39:53 CP=904 bpm, SEWE=748/72 mmhg, SpO2=98.0 %, Resp=14 B/min 20:39:54 Activated Clotting Time Drawn 20:41:45 Wire removed 20:41:49 Guide Catheter was removed A PIGTAIL ANG. 145 INFINITI CATHETER FR 6 was advanced over a wire. OMNIPAQUE, 350 MG, 50ML 50M L was used 20:42:01 for injections. 20:42:18 HR=86 bpm, ZRUW=713/78 mmhg, SpO2=94.0 %, Resp=7 B/min Recorded Pressure: LV, HR=84, Condition=Condition 1 20:43:54 (Left Ventricle) LV 165/8/12 20:44:30 HR=91 bpm, BJRX=988/92 mmhg, SpO2=97.0 %, Resp=11 B/min 20:45:03 The LV was injected at 10 cc/sec for a total of 20. OMNIPAQUE, 350 MG, 50ML 50ML used. Recorded Pressure: LV, Ao, HR=73, Condition=Condition 1 20:45:13 (Left Ventricle) LV 162/9/15, (Aorta) Ao 161/70/113 3 mg MORPHINE given in lab by Myriam Estrada RN in Right Antecubital via Peripheral IV. Order ed by Brad Metz. 20:45:19 Reason: For pain. 20:45:49 HR=73 bpm, LVDM=399/76 mmhg, SpO2=97.0 %, Resp=7 B/min 10 mcg/min NITROGLYCERIN DRIP increased in lab by Saida Ty in Left Antecubital via Perip heral IV. Pump/Drip 20:46:05 Flow = 3 ml/hr using D5W with a concentration of 50 mg in 250 ml. Ordered by Brda Metz. Reason: For pain. drip increased 20:46:35 ACT (Normal Range 90-180) = 449 After removing the current catheter a JL 3.5 INFINITI CATHETER FR 5 was advanced over a WIRE, E XCHANGE 260CM 20:47:40 3MMJ 260CM. 20:47:48 HR=77 bpm, IDZZ=925/85 mmhg, SpO2=96.0 %, Resp=14 B/min 20:49:00 1 mg VERSED given in lab by Myriam Estrada, JOYA in Right Antecubital via Peripheral IV. Ord ered by Brad Metz. 20:49:51 HR=79 bpm, POZM=532/84 mmhg, SpO2=96.0 %, Resp=16 B/min 3 mg MORPHINE given in lab by Myriam Estrada, JOYA in Right Antecubital via Peripheral IV. Order ed by Brad Metz. 20:50:06 Reason: For pain. 42 mL (Bolus) AGGRASTAT BOLUS given in lab by Myriam Estrada, JOYA in Right Antecubital via Safia pheral IV. Using 20:51:25 [Solution Name]. Ordered by Brad Metz. 20:51:52 HR=75 bpm, PIUU=183/78 mmhg, SpO2=94.0 %, Resp=10 B/min 20:52:02 The LCA was injected and visualized at various angles. OMNIPAQUE, 350 MG, 150ML 150ML used . 20:53:15 Catheter was removed 20:53:26 Case End (Physician broke scrub) Assessment: Final Case, HR=81 BPM, Rhythm=afib, TQQS=866/76 mmhg, Chest Pain=0 Right Pulses: Betito Ped=2, Femoral=2, Radial=3 20:53:36 Neurological: State=Alert, Ox3, MEDINA Respiration: Resp=17 B/min, SpO2=99 % 20:53:51 HR=82 bpm, VNVG=418/76 mmhg, SpO2=86.0 %, Resp=14 B/min, Pain=0 20:54:34 180 mg BRILINTA given in lab by Myriam Estrada, JOYA via Oral. Ordered by Brad Metz. Radial Compression Device Used. 10 mLs of air placed in BAND, RADIAL COMPRESSION TR SHORT 24 24 CM. Affected 20:55:43 hand 99 % O2 saturation. 20:55:52 HR=81 bpm, NKGY=444/76 mmhg, SpO2=99 %, Resp=16 B/min 20:57:50 HR=79 bpm, OPUN=911/76 mmhg, SpO2=99 %, Resp=16 B/min 21:00:26 HR=66 bpm, ZIYF=349/93 mmhg, SpO2=99 %, Resp=16 B/min 21:01:52 HR=73 bpm, NVTT=572/73 mmhg, NvC8=219.0 %, Resp=16 B/min 21:03:49 HR=75 bpm, RROZ=675/100 mmhg, SpO2=99.0 %, Resp=15 B/min 21:04:46 Vitals capture stopped. 21:06:18 Cine recording checked. 21:08:40 Patient moved to stretcher 21:09:33 Patient transported to [facility]. 21:10:12 Bedside Report will be given. 21:10:15 Implantable Device card placed in patient's chart. End Study - Contrast Media Used In Study Contrast Total Opened (mL) Total Used (mL) Total Wasted (mL) Omnipaque 105 105 0 End Study - Maximum Contrast Load Max Contrast Load (mL) 401.6 End Study - Radiation Exposure Fluoro Time Fluoro Dose (mGy) Cine Dose (uGym2) (minutes) 8.4 850 4927 End Study - Sheaths Sheaths Pulled By Sheath Hold Time (min) Agnieszka Cantrell End Study - Patient Disposition Complications Transferred To Interventional Outcome No Telemetry Bed successful
[2018-01-11] MEDS ORDERED: Misc Info for Pharmacy OTHER SCH (22:00)
--- NOTE | 2018-01-11 22:00 | MA ---
cc: Brad Metz MD DATE: 01/11/2018 PROCEDURE: Right radial arterial access, left heart catheterization, left ventriculography, coronary angiography direct stenting of the distal circumflex coronary artery. DESCRIPTION OF PROCEDURE: The patient was brought to the cardiac catheterization lab with an acute inferior STEMI. The groin and the right wrist were prepped and draped in sterile fashion. Using 1% lidocaine for local anesthesia, a Terumo slender sheath was easily inserted in the right radial artery. [place] catheter was then used to image both coronary arteries. I then used an XB 3.5 guiding catheter to engage the left main. Circumflex artery was then crossed with a BMW wire. I gave him IV heparin. Initial ACT was subtherapeutic. Additional heparin made him therapeutic. The distal circumflex was then directly stented utilizing a 3.5 x 18 mm Roberto stent at 12 atmospheres. He had some slight reflow initially, I gave some nitro and that reversed. He had some pain after that, which gradually got better. I did give him 1 dose of Aggrastat. Guiding catheter was then changed to an angled pigtail catheter for an LV gram a pullback. It went back with a left 5 Dheeraj just to make sure the stented site was okay and the final angiogram looked excellent, with MELLY 3 flow, no thrombus or dissection. The patient is being loaded with Brilinta and being transferred to [facility] in much improved condition. He has been in and out of paroxysmal atrial flutter and short runs of SVT, but as I am dictating this and now that the artery is open, his rhythm is becoming much more stable. There were no complications. FINDINGS: 1. Hemodynamics: Left ventricular pressure is 162/9 with an end diastolic pressure of 15. Aortic pressure was 161/70 with a mean of 113. There was no gradient during pullback from the left ventricle to the aorta. 2. Left ventriculography: Left ventriculography shows inferior akinesis. EF is 40-45%. There is no mitral regurgitation seen. 3. Coronary angiography: Left main coronary artery has about 10% distal stenosis. There is a tiny ramus intermediate branch, which appears normal. Essentially, there are 2 major vessels off the left main, the LAD and the circumflex vessel. The LAD is transapical. It has diffuse 10-20% proximal and mid irregularities with no high-grade lesions. Diagonal branches are small. The circumflex artery is large and gives off a small to medium size first obtuse marginal branch. Immediately after that, there was a concentric 30% stenosis. Then more distally, there was a 99% stenosis with grade MELLY 2 flow and evidence of ruptured plaque before a large posterolateral branch. The right coronary artery is dominant and this vessel just beyond the curve demonstrates 20-25% irregularities. 4. Results of stenting: Following stenting of the distal circumflex vessel, a 0% residual stenosis had been achieved with a very slight step-up in both ends of the stent, indicating great stent apposition. There was also MELLY grade 3 flow and no loss of side branches. CONCLUSIONS: 1. Mild hypertension. 2. Normal left ventricular end-diastolic pressure. 3. Moderately impaired ventricular function. 4. STEMI secondary to subacute thrombosis of the distal circumflex vessel now successfully stented with a drug-eluting stent. PLAN: The patient will be maintained on aspirin and Brilinta. Will introduce an IRINA inhibitor, beta adalberto, and statin as appropriate prior to discharge. Anticipated hospital stay is about 2 days. May use IV nitroglycerin for his blood pressure for now. MD SUBHA Lin/navneet , 09:05 PM , 09:14 PM
[2018-01-11] MEDS: Sod Chloride 0.9% Inj 1,000 ML IV.CONT SCH (22:30)
[2018-01-11] MEDS: Metoprolol Tartrate 25 MG Tablet PO SCH (22:30)
[2018-01-11] MEDS ORDERED: Dextrose 50% in Water 50 ML Vial IV.PUSH PRN (22:57)
[2018-01-12] MEDS ORDERED: Insulin NovoLOG Aspart Correctional Sugar Inj SQ SCH (08:00)
[2018-01-12] MEDS ORDERED: Iohexol 350 MG/ML 100 ML Vial (for Cath Lab) IVCONTRAST ONE (08:18)
[2018-01-12] MEDS: Metoprolol Tartrate 25 MG Tablet PO SCH ×2 (08:33→22:09)
[2018-01-12] MEDS: Lisinopril 5 MG Tablet PO SCH (08:33)
[2018-01-12] MEDS: Sod Chloride 0.9% Inj 1,000 ML IV.CONT SCH ×2 (08:35→18:19)
--- NOTE | 2018-01-12 08:38 | P.CON ---
History of Present Illness Consult date: 01/12/18 Requesting Physician: Brad Metz Reason for Consult: Medical Management Primary Care Provider: UNKNOWN Chief Complaint: Chest pain History of Present Illness: This is a pleasant 72 y/o Male who came to Emergency Room who was brought in by relatives, history of severe substernal chest pain for the last 4 years, Pain at rest, He has been having similar pain off and on for past 2-3 days. Initially they would occur spontaneously and go away but this time it continued on. Non radiated, No aggravating or relieving symptoms identified. No associated symptoms like shortness of breath, diaphoresis, nausea or vomiting. he has DM II, takes not taking his medicine Metformin for months His blood pressure upon arrival was 190 systolic. His last stress test was 10- 15 years ago. tobacco dependence the pain was rated on admission as 6/10 in intensity. 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 initially seen at [facility]. ECG St elevation in the inferior lead with reciprocal depressions in the anterior lateral leads. seen by vision specialist Doctor Brad Metz with diagnosis of Acute inferior ST segment elevation NE, Paroxysmal Atrial Fibrillation, DM II, Medical Non compliance, Tobacco dependence, suspected interstitial Lung disease. Patient stable in his bedroom, multiple relatives in the room. all questions answered. Review of Systems All other systems reviewed negative except as stated in HPI PMFSH - History History Provided By: Patient - Medical History Medical History: Medical History (Last Reviewed 01/11/18 @ 19:54 by Di Aguirre MD) Hx of diabetes mellitus - Surgical History Surgical History: Surgical History (Last Reviewed 01/11/18 @ 19:54 by Di Aguirre MD) Hx of knee surgery Hx of tonsillectomy - Family History Family History: Family History (Last Updated 01/12/18 @ 08:36 by Enmanuel Parra MD) Father Family history of acute myocardial infarction - Tobacco History Second Hand Smoke Exposure: Yes Tobacco Use In Past 30 Days: Yes Smoking Status: Current every day smoker Tobacco Type: Cigarettes - Alcohol History How Often Do You Have a Drink Containing Alcohol: 2 to 4 times a month - Substance Use History Substance History: No History of Abuse - Travel History Recent Travel in the [facility] Within the Last 8 Weeks: No Recent Travel Out of the Country Within the Last 8 Weeks: No - Immunization History Tetanus Immunization: Unsure Hx Influenza Vaccine This Season: No Medications and Allergies Active Medications: Active Medications Acetaminophen (Tylenol) 325 mg PO Q4H PRN PRN Reason: PAIN SCALE 1 TO 2 Last Admin: 01/12/18 02:00 Dose: 325 mg Aspirin (Aspirin Chew) 81 mg PO DAILY [facility] Atorvastatin Calcium (Lipitor) 40 mg PO DAILY [facility] Dextrose (D50w Vial) 50 ml IV.PUSH UNSCH PRN PRN Reason: PER HYPOGLYCEMIA PROTOCOL Glucagon (Glucagon Inj) 1 mg OTHER PRN PRN PRN Reason: for Hypoglycemia Protocol Nitroglycerin/Dextrose (Nitroglycerin Drip Premix) 50 mg in 250 mls @ 0 mls/hr IV.CONT TITRATE PRN; Protocol PRN Reason: Per Protocol Last Titration: 01/12/18 07:51 Dose: 50 mcg/min, 15 mls/hr Sodium Chloride (Ns Inj) 1,000 mls @ 100 mls/hr IV.CONT .Q10H [facility] Last Admin: 01/11/18 22:30 Dose: 100 mls/hr Insulin Aspart (Novolog Insulin Correctional Sugar Inj) 0 unit SQ ACHS [facility]; Protocol Lisinopril (Prinivil) 10 mg PO DAILY [facility] Metoprolol Tartrate (Lopressor) 25 mg PO BID [facility] Last Admin: 01/11/18 22:30 Dose: 25 mg Miscellaneous Information (Mis Info For Pharmacy/Read Comments) 1 each OTHER UNSCH [facility] Ondansetron HCl (Zofran Inj) 4 mg IV.PUSH Q6H PRN PRN Reason: NAUSEA Oxycodone/Acetaminophen (Percocet 10/325 Mg) 1 tab PO Q4H PRN PRN Reason: PAIN SCALE 6 TO 10 Oxycodone/Acetaminophen (Percocet 5/325 Mg) 1 tab PO Q4H PRN PRN Reason: PAIN SCALE 3 TO 5 Sodium Chloride (Ns Flush) 2 ml IV.FLUSH UNSCH PRN PRN Reason: FLUSH AFTER USING IV ACCESS Sodium Chloride (Ns Flush) 2 ml IV.FLUSH BID [facility] Temazepam (Restoril) 15 mg PO HS PRN PRN Reason: INSOMNIA Ticagrelor (Brilinta) 90 mg PO BID [facility] Last Admin: 01/12/18 02:42 Dose: Not Given Allergies Allergy/AdvReac Type Severity Reaction Status Date / Time No Known Allergies Allergy Verified 01/11/18 19:02 Home Medications Medication Instructions Recorded Confirmed Type No Known Home Medications 01/11/18 01/11/18 History Physical Exam Vital signs: Vital Signs 01/11/18 18:56 01/11/18 19:15 01/11/18 19:30 Temperature 97.6 F Pulse Rate 88 78 78 Respiratory Rate 18 18 17 Blood Pressure 189/104 H 155/80 H 169/80 H Pulse Oximetry 97 98 99 01/11/18 20:00 01/11/18 21:15 01/11/18 21:26 Temperature 97.1 F L Pulse Rate 81 76 Respiratory Rate 16 Blood Pressure 142/86 H Pulse Oximetry 96 96 01/11/18 22:00 01/11/18 23:00 01/12/18 00:00 Temperature Pulse Rate 66 76 60 Respiratory Rate 16 Blood Pressure 137/77 Pulse Oximetry 96 01/12/18 01:00 01/12/18 01:08 01/12/18 02:00 Temperature Pulse Rate 60 60 66 Respiratory Rate Blood Pressure Pulse Oximetry 01/12/18 03:00 01/12/18 04:00 01/12/18 05:00 Temperature Pulse Rate 63 64 62 Respiratory Rate 16 Blood Pressure 149/77 H Pulse Oximetry 96 01/12/18 05:23 01/12/18 06:00 01/12/18 07:00 Temperature Pulse Rate 62 60 62 Respiratory Rate 16 Blood Pressure 124/65 Pulse Oximetry 97 01/12/18 08:00 Temperature Pulse Rate 60 Respiratory Rate Blood Pressure Pulse Oximetry Intake & Output 01/11/18 01/12/18 01/12/18 18:59 06:59 18:59 Intake Total 740 / 740 Output Total 600 / 600 Balance 140 / 140 Weight 80.3 kg 79.2 kg Intake: IV 500 / 500 NS Inj 500 ML @ Wide Open IV. 500 / 500 SIG ONCE ONE Rx#:[id number] Oral 240 / 240 Output: Urine 600 / 600 Other: # Bowel Movements 0 Weight On Admission 79.2 kg Narrative: GENERAL: Awake, alert, anxious, moderate distress SKIN: Focused skin assessment warm/dry. HEAD: Atraumatic. Normocephalic. EYES: Pupils equal and round. No scleral icterus. No injection or drainage. ENT: No nasal bleeding or discharge. Mucous membranes pink and moist. NECK: Trachea midline. No JVD. CARDIOVASCULAR: Regular rate and rhythm. No murmur appreciated. RESPIRATORY: No accessory muscle use. Clear to auscultation. Breath sounds equal bilaterally. GASTROINTESTINAL: Abdomen soft, non-tender, nondistended. Hepatic and splenic margins not palpable. MUSCULOSKELETAL: No obvious deformities. No clubbing. No cyanosis. No edema. NEUROLOGICAL: Awake and alert. No obvious cranial nerve deficits. Motor grossly within normal limits. Normal speech. PSYCHIATRIC: Appropriate mood and affect; insight and judgment normal. Assessment and Plan - Plan 1. Acute inferior ST segment elevation NE, status post Emergent Cardiac Catheterization Normal left ventricular end diastolic pressure, moderate impaired Ventricular function, STEMI secondary to subacute thrombosis of the distal circumflex vessel now successfully stented with a drug eluting stent, to continue Aspirin and Brilinta, IRINA inhibitor, Beta Alejandra and Statins, and may use Nitroglycerine drip for Hypertension for now. as per Doctor Brad Metz 2. Paroxysmal Atrial Fibrillation at this time persistent on Beta blockers. 3. DM II on hold home medicines continue sliding scale. 4. Medical Non compliance Educated about the importance of his medical management 5. Tobacco dependence strongly recommended to stop smoking. 6. Suspected interstitial Lung disease, DVT prophylaxis with Code Status: Full Code. Discussed Condition With: Patient, Relatives and nurse Miss Salinas Discharge Planning: Once cleared by vision specialist.
[2018-01-12] MEDS: Famotidine PF Inj 20 MG/2 ML Vial IV.PUSH SCH ×2 (09:26→22:10)
[2018-01-12] MEDS: guaiFENesin 600 MG ER Tablet PO SCH ×2 (09:26→22:10)
--- NOTE | 2018-01-12 14:02 | P.PNCA ---
Subjective Interval history: Had chest pain this AM which correlates with paroxysms of atrial fibrillation. Currently NSR. Medications and Allergies Active Medications: Active Medications Acetaminophen (Tylenol) 325 mg PO Q4H PRN PRN Reason: PAIN SCALE 1 TO 2 Last Admin: 01/12/18 02:00 Dose: 325 mg Aspirin (Aspirin Chew) 81 mg PO DAILY [facility] Last Admin: 01/12/18 08:34 Dose: 81 mg Atorvastatin Calcium (Lipitor) 40 mg PO DAILY [facility] Last Admin: 01/12/18 08:33 Dose: 40 mg Dextrose (D50w Vial) 50 ml IV.PUSH UNSCH PRN PRN Reason: PER HYPOGLYCEMIA PROTOCOL Famotidine (Pepcid Pf Inj) 20 mg 0.25 mg/kg (20 mg) IV.PUSH Q12HR [facility] Last Admin: 01/12/18 09:26 Dose: 20 mg Glucagon (Glucagon Inj) 1 mg OTHER PRN PRN PRN Reason: for Hypoglycemia Protocol Guaifenesin (Mucinex Er) 600 mg PO BID [facility] Last Admin: 01/12/18 09:26 Dose: 600 mg Heparin Sodium (Porcine) (Heparin Inj) 5,000 units SQ Q8HR [facility] Nitroglycerin/Dextrose (Nitroglycerin Drip Premix) 50 mg in 250 mls @ 0 mls/hr IV.CONT TITRATE PRN; Protocol PRN Reason: Per Protocol Last Titration: 01/12/18 07:51 Dose: 50 mcg/min, 15 mls/hr Sodium Chloride (Ns Inj) 1,000 mls @ 100 mls/hr IV.CONT .Q10H [facility] Last Admin: 01/12/18 08:35 Dose: 100 mls/hr Insulin Aspart (Novolog Insulin Correctional Sugar Inj) 0 unit SQ 08,12,17,21, 03 [facility]; Protocol Ipratropium Ardara (Atrovent Neb) 0.5 mg NEB Q4HR NEB [facility] Lisinopril (Prinivil) 10 mg PO DAILY [facility] Last Admin: 01/12/18 08:33 Dose: 10 mg Metoprolol Tartrate (Lopressor) 25 mg PO BID [facility] Last Admin: 01/12/18 08:33 Dose: 25 mg Miscellaneous Information (Misc Info For Pharmacy/Read Comments) 1 each OTHER UNSCH [facility] Ondansetron HCl (Zofran Inj) 4 mg IV.PUSH Q6H PRN PRN Reason: NAUSEA Last Admin: 01/12/18 08:33 Dose: 4 mg Oxycodone/Acetaminophen (Percocet 10/325 Mg) 1 tab PO Q4H PRN PRN Reason: PAIN SCALE 6 TO 10 Oxycodone/Acetaminophen (Percocet 5/325 Mg) 1 tab PO Q4H PRN PRN Reason: PAIN SCALE 3 TO 5 Last Admin: 01/12/18 08:38 Dose: 1 tab Sodium Chloride (Ns Flush) 2 ml IV.FLUSH UNSCH PRN PRN Reason: FLUSH AFTER USING IV ACCESS Sodium Chloride (Ns Flush) 2 ml IV.FLUSH BID [facility] Last Admin: 01/12/18 08:34 Dose: 2 ml Temazepam (Restoril) 15 mg PO HS PRN PRN Reason: INSOMNIA Ticagrelor (Brilinta) 90 mg PO BID [facility] Last Admin: 01/12/18 08:34 Dose: 90 mg Allergies Allergy/AdvReac Type Severity Reaction Status Date / Time No Known Allergies Allergy Verified 01/11/18 19:02 Home Medications Medication Instructions Recorded Confirmed Type No Known Home Medications 01/11/18 01/11/18 History Physical Exam Vital signs: Vital Signs 01/11/18 18:56 01/11/18 19:15 01/11/18 19:30 Temperature 97.6 F Pulse Rate 88 78 78 Respiratory Rate 18 18 17 Blood Pressure 189/104 H 155/80 H 169/80 H Pulse Oximetry 97 98 99 01/11/18 20:00 01/11/18 21:15 01/11/18 21:26 Temperature 97.1 F L Pulse Rate 81 76 Respiratory Rate 16 Blood Pressure 142/86 H Pulse Oximetry 96 96 01/11/18 22:00 01/11/18 23:00 01/12/18 00:00 Temperature Pulse Rate 66 76 60 Respiratory Rate 16 Blood Pressure 137/77 Pulse Oximetry 96 01/12/18 01:00 01/12/18 01:08 01/12/18 02:00 Temperature Pulse Rate 60 60 66 Respiratory Rate Blood Pressure Pulse Oximetry 01/12/18 03:00 01/12/18 04:00 01/12/18 05:00 Temperature Pulse Rate 63 64 62 Respiratory Rate 16 Blood Pressure 149/77 H Pulse Oximetry 96 01/12/18 05:23 01/12/18 06:00 01/12/18 07:00 Temperature Pulse Rate 62 60 62 Respiratory Rate 16 Blood Pressure 124/65 Pulse Oximetry 97 01/12/18 08:00 01/12/18 08:40 01/12/18 09:00 Temperature Pulse Rate 60 60 Respiratory Rate 20 Blood Pressure 119/68 Pulse Oximetry 98 01/12/18 10:00 01/12/18 11:00 01/12/18 11:47 Temperature Pulse Rate 79 62 79 Respiratory Rate 16 Blood Pressure Pulse Oximetry Intake & Output 01/11/18 01/12/18 01/12/18 18:59 06:59 18:59 Intake Total 740 / 740 1000 / 1000 Output Total 600 / 600 Balance 140 / 140 1000 / 1000 Weight 80.3 kg 79.2 kg Intake: IV 500 / 500 1000 / 1000 NS Inj 1,000 ML @ 100 mls/hr IV 1000 / 1000 .CONT .Q10H [facility] Rx#:[id number] NS Inj 500 ML @ Wide Open IV. 500 / 500 SIG ONCE ONE Rx#:[id number] Oral 240 / 240 Output: Urine 600 / 600 Other: # Bowel Movements 0 Weight On Admission 79.2 kg Narrative: Alert, NAD, Multiple family members in the room. Neck: no JVD Chest few basilar crackles CV S1S2 RRR 1/6 DINO Right Wrist OK Abd soft Ext no C,C,E. No calf tenderness Tele: paroxysms of AF RVR Results 01/11/18 19:15 01/11/18 19:15 Cardiac Enzymes 01/11/18 01/11/18 Range/Units 19:15 19:15 AST 32 (15-37) U/L CK-MB (CK-2) 15.1 H (0.5-3.6) ng/mL Troponin I 1.26 H* (0.02-0.05) ng/mL B-Natriuretic Peptide 45 (0-100) pg/mL Coagulation 01/11/18 01/11/18 Range/Units 19:15 19:15 PT 10.6 (9.8-11.6) sec APTT 27.8 (24.3-30.1) sec B-Natriuretic Peptide 45 (0-100) pg/mL CBC 01/11/18 Range/Units 19:15 WBC 10.1 (4.0-11.0) th/mm3 RBC 4.84 (4.50-5.90) mil/mm3 Hgb 15.2 (13.0-17.0) gm/dL Hct 43.8 (39.0-51.0) % Plt Count 352 (150-450) th/mm3 Neut # (Auto) 6.8 (1.8-7.7) th/mm3 Lymph # (Auto) 2.3 (1.0-4.8) th/mm3 Isabella # (Auto) 0.9 (0.0-0.9) th/mm3 Eos # (Auto) 0.1 (0.0-0.4) th/mm3 Baso # (Auto) 0.1 (0.0-0.2) th/mm3 Comprehensive Metabolic Panel 01/11/18 Range/Units 19:15 Sodium 133 L (136-145) meq/L Potassium 4.2 (3.5-5.1) meq/L Chloride 101 (98-107) meq/L Carbon Dioxide 25.1 (21.0-32.0) meq/L BUN 8 (7-18) mg/dL Creatinine 1.00 (0.60-1.30) mg/dL Calcium 8.5 (8.5-10.1) mg/dL AST 32 (15-37) U/L ALT 28 (12-78) U/L Alkaline Phosphatase 64 (45-117) U/L Total Protein 7.6 (6.4-8.2) g/dL Albumin 3.4 (3.4-5.0) g/dL Intake and Output 01/11/18 01/12/18 01/12/18 22:59 06:59 14:59 Intake Total 500 / 500 240 / 240 1000 / 1000 Output Total 600 / 600 Balance 500 / 500 -360 / -360 1000 / 1000 Intake: IV 500 / 500 1000 / 1000 NS Inj 1,000 ML @ 100 mls/hr IV 1000 / 1000 .CONT .Q10H [facility] Rx#:[id number] NS Inj 500 ML @ Wide Open IV. 500 / 500 SIG ONCE ONE Rx#:[id number] Oral 240 / 240 Output: Urine 600 / 600 Other: # Bowel Movements 0 Weight 79.2 kg 79.2 kg Weight On Admission 79.2 kg - Imaging and Cardiology Imaging: Impressions Chest X-Ray 10/28/18 19:03 CONCLUSION: No infiltrate or effusion. Mild interstitial prominence. No prior study for comparison. Assessment and Plan - Assessment (1) ST elevation myocardial infarction (STEMI) of inferior wall Code(s): I21.19 - ST elevation (STEMI) myocardial infarction involving other coronary artery of inferior wall Status: Acute Plan: 01/12/2018 - revascularized with LCX stent. Stent result was good. No other lesions requiring revasc. (2) Stented coronary artery Code(s): Z95.5 - Presence of coronary angioplasty implant and graft Status: Acute Plan: Cont ASA and Brilinta (3) Tobacco abuse Code(s): Z72.0 - Tobacco use Status: Acute Plan: Counseled - he states he has quit now (4) Noncompliance Code(s): Z91.19 - Patient's noncompliance with other medical treatment and regimen Status: Acute Plan: Educated on importance of meds/ F/U. (5) Paroxysmal atrial fibrillation Code(s): I48.0 - Paroxysmal atrial fibrillation Status: Acute Plan: Question if this all due to his GA or if he had this before his GA. He is less than 24 hours since revascularization. If it persists will start amiodarone and might need to stop BB to prevent bradycardia. (6) Interstitial lung disease Code(s): J84.9 - Interstitial pulmonary disease, unspecified Status: Acute Plan: Will plan repeat CXR at some point - admission CXR abnormal.
[2018-01-12 14:26] LABS: Baso % (Auto) 0.5 % (0.0-2.0); Eos # (Auto) 0.1 th/mm3 (0.0-0.4); Eos % (Auto) 1.3 % (0.0-4.0); Hemoglobin 12.6 gm/dL (13.0-17.0); Lymph # (Auto) 2.4 th/mm3 (1.0-4.8); Lymph % (Auto) 27.8 % (9.0-44.0); Mean Corpuscular HGB Conc 34.1 % (32.0-36.0); Mean Corpuscular Hemoglobin 31.4 pg (27.0-34.0); Mean Platelet Volume 8.8 fL (7.0-11.0); Mono # (Auto) 0.9 th/mm3 (0.0-0.9); Mono % (Auto) 10.2 % (0.0-8.0); Neut # (Auto) 5.2 th/mm3 (1.8-7.7); Neut % (Auto) 60.2 % (16.0-70.0); Platelet Count 261 th/mm3 (150-450); Red Blood Count 4.02 mil/mm3 (4.50-5.90); Red Cell Distribution Width 13.1 % (11.6-17.2); White Blood Count 8.7 th/mm3 (4.0-11.0)
[2018-01-12 14:41] LABS: Calcium 7.7 mg/dL (8.5-10.1); Carbon Dioxide 24.1 meq/L (21.0-32.0); Potassium 4.1 meq/L (3.5-5.1)
[2018-01-12 14:44] LABS: Chol/HDL Ratio 4.62 Ratio; HDL Cholesterol 30.3 mg/dL (40.0-60.0)
[2018-01-12] MEDS: Heparin - SQ 10,000 UNITS/ML Vial SQ SCH ×2 (15:30→22:14)
[2018-01-12] MEDS: Insulin NovoLOG Aspart Correctional Sugar Inj SQ SCH ×4 (15:31→22:10)
--- NOTE | 2018-01-12 16:49 | ECG ---
Date Performed: 01/11/2018 Time Performed: 18:56:18 PTAGE: 72 years EKG: Sinus rhythm WITH FREQUENT VENTRICULAR PREMATURE COMPLEXES IN A BIGEMINAL PATTERN POSSIBLE LEFT ATRIAL ENLARGEMEN T Nonspecific ST segment changes. ABNORMAL ECG NO PREVIOUS TRACING DOCTOR: Lionel Moore Interpretating Date/Time 01/12/2018 16:48:41
--- NOTE | 2018-01-12 16:53 | ECG ---
Date Performed: 01/11/2018 Time Performed: 19:29:10 PTAGE: 72 years EKG: ATRIAL FLUTTER/TACHYCARDIA WITH RAPID VENTRICULAR RESPONSE NONSPECIFIC ST & T-WAVE ABNORMAL ITY ABNORMAL RHYTHM ECG When compared to PREVIOUS TRACING , atrial flutter has replaced Sinus rhythm . Premature ventricular contractions are no longer noted. ST segment depression is not as prominent. PREVIOUS TRACIN01/11/2018 18.56.18 DOCTOR: Lionel Moore Interpretating Date/Time 01/12/2018 16:52:23
[2018-01-12] MEDS ORDERED: Magnesium Sulfate Inj 2 GM in Sodium Chlor 0.9% Inj 96 ML IV.SIG ONE (18:30)
--- NOTE | 2018-01-12 19:58 | ECG ---
Date Performed: 01/11/2018 Time Performed: 21:39:56 PTAGE: 72 years EKG: Sinus rhythm with PVC(s), with a run of atrial flutter. Possible inferior infarct - age undetermined When compare d to previous tracing, sinus rhythm is now noted With a period of atrial flutter. Abnormal ECG PREVIOUS TRACING : 01/11/2018 19.29 DOCTOR: Lionel Moore Interpretating Date/Time 01/12/2018 19:57:44
--- NOTE | 2018-01-12 20:01 | ECG ---
Date Performed: 01/12/2018 Time Performed: 07:46:16 PTAGE: 72 years EKG: Sinus bradycardia Prolonged QT interval When compared to previous tracing, Sinus rhythm has been Restored. Borderline ECG PREVIOUS TRACING : 01/11/2018 21.39 DOCTOR: Lionel Moore Interpretating Date/Time 01/12/2018 19:58:48
--- NOTE | 2018-01-12 20:22 | ECHRPT ---
Indication: afib and flutter CONCLUSIONS The left ventricular systolic function is normal with an estimated ejection fraction in the range of 50-55%. Mild mitral valve regurgitation. There is mild tricuspid valve regurgitation. The estimated pulmonary arterial pressure is 39 mmHg. BP: / HR: Rhythm: MEASUREMENTS (Male / Female) Normal Values Technical Quality:poor 2D ECHO LV Diastolic Diameter PLAX 4.0 cm 4.2 - 5.9 / 3.9 - 5.3 cm LV Systolic Diameter PLAX 2.9 cm IVS Diastolic Thickness 1.1 cm 0.6 - 1.0 / 0.6 - 0.9 cm LVPW Diastolic Thickness 1.2 cm 0.6 - 1.0 / 0.6 - 0.9 cm LV Relative Wall Thickness 0.6 RV Internal Dim ED PLAX 2.6 cm LVOT Diameter 1.9 cm Aortic Root Diameter 2.7 cm LA Systolic Diameter LX 2.9 cm 3.0 - 4.0 / 2.7 - 3.8 cm LV Ejection Fraction MOD 4C 53.3 % LV Ejection Fraction 4C AL 54.7 % M-MODE Aortic Root Diameter MM 2.5 cm LA Systolic Diameter MM 3.2 cm LA Ao Ratio MM 1.3 AV Cusp Separation MM 2.0 cm DOPPLER AV Peak Velocity 118.0 cm/s AV Peak Gradient 5.6 mmHg LVOT Peak Velocity 88.4 cm/s LVOT Peak Gradient 3.1 mmHg AV Area Cont Eq pk 2.1 cm Mitral E Point Velocity 65.4 cm/s Mitral A Point Velocity 90.8 cm/s Mitral E to A Ratio 0.7 LV E' Lateral Velocity 6.0 cm/s Mitral E to LV E' Lateral Ratio 10.8 LV E' Septal Velocity 6.5 cm/s Mitral E to LV E' Septal Ratio 10.0 TR Peak Velocity 268.0 cm/s TR Peak Gradient 28.7 mmHg Right Atrial Pressure 10.0 mmHg Pulmonary Artery Systolic Pressu 38.7 mmHg Right Ventricular Systolic Press 38.7 mmHg PV Peak Velocity 79.1 cm/s PV Peak Gradient 2.5 mmHg FINDINGS LEFT VENTRICLE Normal left ventricular size. Wall thickness is normal. The left ventricular systolic function is low normal with an estimated ejection fraction in the rang e of 50- 55%. RIGHT VENTRICLE Normal right ventricular size and systolic function. LEFT ATRIUM The left atrial size is normal. RIGHT ATRIUM The right atrial size is normal. ATRIAL SEPTUM Normal atrial septal thickness without atrial level shunting by limited color doppler interrogation. AORTA The aortic root and proximal ascending aorta are normal in size on limited imaging. MITRAL VALVE Mild mitral valve regurgitation. AORTIC VALVE Trileaflet aortic valve. No aortic valve stenosis or regurgitation. TRICUSPID VALVE The estimated pulmonary arterial pressure is 39 mmHg. There is mild tricuspid valve regurgitation. PULMONARY VALVE No pulmonary valve regurgitation or stenosis. VESSELS The inferior vena cava is normal in size. PERICARDIUM No pericardial effusion. Ronel Hammond MD (Electronically Signed) Final Date:12 January 2018 20:20
[2018-01-13] MEDS: Sod Chloride 0.9% Inj 1,000 ML IV.CONT SCH ×3 (02:54→16:37)
[2018-01-13] MEDS: Insulin NovoLOG Aspart Correctional Sugar Inj SQ SCH ×6 (03:30→21:10)
[2018-01-13] MEDS: Heparin - SQ 10,000 UNITS/ML Vial SQ SCH ×3 (05:34→21:07)
--- NOTE | 2018-01-13 09:28 | P.PNCA ---
Subjective Interval history: No complaints Medications and Allergies Active Medications: Active Medications Acetaminophen (Tylenol) 325 mg PO Q4H PRN PRN Reason: PAIN SCALE 1 TO 2 Last Admin: 01/12/18 02:00 Dose: 325 mg Aspirin (Aspirin Chew) 81 mg PO DAILY [facility] Last Admin: 01/12/18 08:34 Dose: 81 mg Atorvastatin Calcium (Lipitor) 40 mg PO DAILY [facility] Last Admin: 01/12/18 08:33 Dose: 40 mg Dextrose (D50w Vial) 50 ml IV.PUSH UNSCH PRN PRN Reason: PER HYPOGLYCEMIA PROTOCOL Famotidine (Pepcid Pf Inj) 20 mg 0.25 mg/kg (20 mg) IV.PUSH Q12HR [facility] Last Admin: 01/12/18 22:10 Dose: 20 mg Glucagon (Glucagon Inj) 1 mg OTHER PRN PRN PRN Reason: for Hypoglycemia Protocol Guaifenesin (Mucinex Er) 600 mg PO BID [facility] Last Admin: 01/12/18 22:10 Dose: 600 mg Heparin Sodium (Porcine) (Heparin Inj) 5,000 units SQ Q8HR [facility] Last Admin: 01/13/18 05:34 Dose: 5,000 units Nitroglycerin/Dextrose (Nitroglycerin Drip Premix) 50 mg in 250 mls @ 0 mls/hr IV.CONT TITRATE PRN; Protocol PRN Reason: Per Protocol Last Titration: 01/12/18 17:00 Dose: Infused Sodium Chloride (Ns Inj) 1,000 mls @ 100 mls/hr IV.CONT .Q10H [facility] Last Admin: 01/13/18 05:34 Dose: 100 mls/hr Amiodarone HCl 450 mg/ (Dextrose) 250 mls @ 33.33 mls/hr IV.CONT TITRATE [facility]; Protocol Amiodarone HCl 150 mg/ (Dextrose) 100 mls @ 100 mls/hr IV.SIG ONCE ONE Stop: 01/13/18 10:22 Insulin Aspart (Novolog Insulin Correctional Sugar Inj) 0 unit SQ 08,12,17,21, 03 [facility]; Protocol Last Admin: 01/13/18 03:30 Dose: 1 unit Ipratropium [place] (Atrovent Neb) 0.5 mg NEB Q4HR NEB [facility] Last Admin: 01/13/18 04:29 Dose: Not Given Lisinopril (Prinivil) 10 mg PO DAILY [facility] Last Admin: 01/12/18 08:33 Dose: 10 mg Metoprolol Tartrate (Lopressor) 25 mg PO BID [facility] Last Admin: 01/12/18 22:09 Dose: 25 mg Miscellaneous Information ([facility] [place] [facility]Read Comments) 1 each OTHER UNSCH [facility] Ondansetron HCl (Zofran Inj) 4 mg IV.PUSH Q6H PRN PRN Reason: NAUSEA Last Admin: 01/12/18 08:33 Dose: 4 mg Oxycodone/Acetaminophen (Percocet 10/325 Mg) 1 tab PO Q4H PRN PRN Reason: PAIN SCALE 6 TO 10 Oxycodone/Acetaminophen (Percocet 5/325 Mg) 1 tab PO Q4H PRN PRN Reason: PAIN SCALE 3 TO 5 Last Admin: 01/12/18 08:38 Dose: 1 tab Sodium Chloride (Ns Flush) 2 ml IV.FLUSH UNSCH PRN PRN Reason: FLUSH AFTER USING IV ACCESS Sodium Chloride (Ns Flush) 2 ml IV.FLUSH BID [facility] Last Admin: 01/12/18 22:10 Dose: 2 ml Temazepam (Restoril) 15 mg PO HS PRN PRN Reason: INSOMNIA Ticagrelor (Brilinta) 90 mg PO BID [facility] Last Admin: 01/12/18 22:10 Dose: 90 mg Allergies Allergy/AdvReac Type Severity Reaction Status Date / Time No Known Allergies Allergy Verified 01/11/18 19:02 Home Medications Medication Instructions Recorded Confirmed Type No Known Home Medications 01/11/18 01/11/18 History Physical Exam Vital signs: Vital Signs 01/12/18 10:00 01/12/18 11:00 01/12/18 11:47 Temperature Pulse Rate 79 62 79 Respiratory Rate 16 Blood Pressure Pulse Oximetry 01/12/18 12:00 01/12/18 15:00 01/12/18 16:00 Temperature Pulse Rate 59 L 79 60 Respiratory Rate 20 18 Blood Pressure 107/56 L 118/57 L Pulse Oximetry 01/12/18 17:00 01/12/18 18:00 01/12/18 19:00 Temperature Pulse Rate 79 80 82 Respiratory Rate Blood Pressure Pulse Oximetry 01/12/18 20:00 01/12/18 20:19 01/12/18 21:00 Temperature 98.2 F Pulse Rate 80 78 84 Respiratory Rate 18 18 Blood Pressure 130/66 Pulse Oximetry 98 01/12/18 22:00 01/12/18 23:00 01/13/18 00:00 Temperature 98.4 F Pulse Rate 82 75 68 Respiratory Rate 18 Blood Pressure 128/66 Pulse Oximetry 95 01/13/18 01:00 01/13/18 02:00 01/13/18 03:00 Temperature Pulse Rate 69 83 69 Respiratory Rate Blood Pressure Pulse Oximetry 01/13/18 04:00 01/13/18 05:00 01/13/18 06:00 Temperature 98.2 F Pulse Rate 70 73 65 Respiratory Rate 17 Blood Pressure 134/78 Pulse Oximetry 96 Intake & Output 01/12/18 01/13/18 01/13/18 18:59 06:59 18:59 Intake Total 2390 / 2390 2280 / 2280 Output Total 1300 / 1300 Balance 2390 / 2390 980 / 980 Weight 79 kg Intake: IV 2150 / 2150 1800 / 1800 Nitroglycerin Drip Premix 50 mg 150 / 150 In 250 ml @ Per Protocol IV. CONT TITRATE PRN Rx#:[id number] NS Inj 1,000 ML @ 100 mls/hr IV 2000 / 1999 1700 / 1700 .CONT .Q10H [facility] Rx#:[id number] Magnesium Sulfate Inj 2 GM In 100 / 100 NS Inj 96 ML @ 50 mls/hr IV.SIG ONCE ONE Rx#:[id number] Oral 240 / 240 480 / 480 Output: Urine 1300 / 1300 Other: # Voids 7 Date of Last Bowel Movement 01/11/18 Narrative: Alert, NAD tele: continues to have paroxysms of Afib RVR > 24 hours out from stenting Chest" few basilar rhonchi CV S1S2 RRR Abd soft Ext no edema Results 01/12/18 13:32 01/12/18 13:32 Cardiac Enzymes 01/11/18 01/11/18 Range/Units 19:15 19:15 AST 32 (15-37) U/L CK-MB (CK-2) 15.1 H (0.5-3.6) ng/mL Troponin I 1.26 H* (0.02-0.05) ng/mL B-Natriuretic Peptide 45 (0-100) pg/mL Coagulation 01/11/18 01/11/18 Range/Units 19:15 19:15 PT 10.6 (9.8-11.6) sec APTT 27.8 (24.3-30.1) sec B-Natriuretic Peptide 45 (0-100) pg/mL Lipids 01/12/18 Range/Units 13:32 Triglycerides 173 H (42-150) mg/dL Cholesterol 140 (120-200) mg/dL HDL Cholesterol 30.3 L (40.0-60.0) mg/dL Cholesterol/HDL Ratio 4.62 Ratio CBC 01/11/18 01/12/18 Range/Units 19:15 13:32 WBC 10.1 8.7 (4.0-11.0) th/mm3 RBC 4.84 4.02 L (4.50-5.90) mil/mm3 Hgb 15.2 12.6 L D (13.0-17.0) gm/dL Hct 43.8 37.0 L (39.0-51.0) % Plt Count 352 261 (150-450) th/mm3 Neut # (Auto) 6.8 5.2 (1.8-7.7) th/mm3 Lymph # (Auto) 2.3 2.4 (1.0-4.8) th/mm3 [place] # (Auto) 0.9 0.9 (0.0-0.9) th/mm3 Eos # (Auto) 0.1 0.1 (0.0-0.4) th/mm3 Baso # (Auto) 0.1 0.0 (0.0-0.2) th/mm3 Comprehensive Metabolic Panel 01/11/18 01/12/18 Range/Units 19:15 13:32 Sodium 133 L 138 (136-145) meq/L Potassium 4.2 4.1 (3.5-5.1) meq/L Chloride 101 108 H (98-107) meq/L Carbon Dioxide 25.1 24.1 (21.0-32.0) meq/L BUN 8 6 L (7-18) mg/dL Creatinine 1.00 0.92 (0.60-1.30) mg/dL Calcium 8.5 7.7 L D (8.5-10.1) mg/dL AST 32 (15-37) U/L ALT 28 (12-78) U/L Alkaline Phosphatase 64 (45-117) U/L Total Protein 7.6 (6.4-8.2) g/dL Albumin 3.4 (3.4-5.0) g/dL Intake and Output 01/12/18 01/13/18 01/13/18 22:59 06:59 14:59 Intake Total 1490 / 1490 2180 / 2180 Output Total 1300 / 1300 Balance 1490 / 1490 880 / 880 Intake: IV 1250 / 1250 1700 / 1700 Nitroglycerin Drip Premix 50 mg 150 / 150 In 250 ml @ Per Protocol IV. CONT TITRATE PRN Rx#:[id number] NS Inj 1,000 ML @ 100 mls/hr IV 1000 / 1000 1700 / 1700 .CONT .Q10H [facility] Rx#:[id number] Magnesium Sulfate Inj 2 GM In 100 / 100 NS Inj 96 ML @ 50 mls/hr IV.SIG ONCE ONE Rx#:[id number] Oral 240 / 240 480 / 480 Output: Urine 1300 / 1300 Other: # Voids 7 Date of Last Bowel Movement 01/11/18 01/11/18 Weight 79 kg - Imaging and Cardiology Imaging: Impressions Chest X-Ray 01/11/18 19:03 CONCLUSION: No infiltrate or effusion. Mild interstitial prominence. No prior study for comparison. Assessment and Plan - Assessment (1) ST elevation myocardial infarction (STEMI) of inferior wall Code(s): I21.19 - ST elevation (STEMI) myocardial infarction involving other coronary artery of inferior wall Status: Acute Plan: 01/12/2018 - revascularized with LCX stent. Stent result was good. No other lesions requiring revasc. (2) Stented coronary artery Code(s): Z95.5 - Presence of coronary angioplasty implant and graft Status: Acute Plan: Cont ASA and Brilinta (3) Tobacco abuse Code(s): Z72.0 - Tobacco use Status: Acute Plan: Counseled - he states he has quit now (4) Noncompliance Code(s): Z91.19 - Patient's noncompliance with other medical treatment and regimen Status: Acute Plan: Educated on importance of meds/ F/U. (5) Paroxysmal atrial fibrillation Code(s): I48.0 - Paroxysmal atrial fibrillation Status: Acute Plan: Question if this all due to his HI or if he had this before his HI. He is less than 24 hours since revascularization. If it persists will start amiodarone and might need to stop BB to prevent bradycardia. 01/13 Continues to have paroxysms of AF RVR. Start IV amio. (6) Interstitial lung disease Code(s): J84.9 - Interstitial pulmonary disease, unspecified Status: Acute Plan: Will plan repeat CXR at some point - admission CXR abnormal.
--- NOTE | 2018-01-13 09:30 | P.PN ---
Subjective Interval history: This is a pleasant 72 y/o Male who came to Emergency Room who was brought in by relatives, history of severe substernal chest pain for the last 4 years, Pain at rest, He has been having similar pain off and on for past 2-3 days. Initially they would occur spontaneously and go away but this time it continued on. Non radiated, No aggravating or relieving symptoms identified. No associated symptoms like shortness of breath, diaphoresis, nausea or vomiting. he has DM II, takes not taking his medicine Metformin for months His blood pressure upon arrival was 190 systolic. His last stress test was 10- 15 years ago. tobacco dependence the pain was rated on admission as 6/10 in intensity. with diagnosis of STEMI, was given Aspirin, Nitroglycerine drip, Heparin, Emergent transfer to Cardiac lab instructor. initially [facility]. ECG St elevation in the inferior lead with reciprocal depressions in the anterior lateral leads. seen by legal document specialist Doctor Brad Metz with diagnosis of Acute inferior ST segment elevation HI, Paroxysmal Atrial Fibrillation, DM II, Medical Non compliance, Tobacco dependence, suspected interstitial Lung disease. 01/13: with diagnosis of Acute inferior ST segment elevation HI, status post emergent Cardiac cath moderate impaired ventricular function, STEMI, secondary to subacute thrombosis of the distal circumflex vessel now successfully stented with a drug eluting stent. no nausea, vomit or diarrhea not yet cleared for discharge by legal document specialist. Physical Exam Vital signs: Vital Signs 01/12/18 10:00 01/12/18 11:00 01/12/18 11:47 Temperature Pulse Rate 79 62 79 Respiratory Rate 16 Blood Pressure Pulse Oximetry 01/12/18 12:00 01/12/18 15:00 01/12/18 16:00 Temperature Pulse Rate 59 L 79 60 Respiratory Rate 20 18 Blood Pressure 107/56 L 118/57 L Pulse Oximetry 01/12/18 17:00 01/12/18 18:00 01/12/18 19:00 Temperature Pulse Rate 79 80 82 Respiratory Rate Blood Pressure Pulse Oximetry 01/12/18 20:00 01/12/18 20:19 01/12/18 21:00 Temperature 98.2 F Pulse Rate 80 78 84 Respiratory Rate 18 18 Blood Pressure 130/66 Pulse Oximetry 98 01/12/18 22:00 01/12/18 23:00 01/13/18 00:00 Temperature 98.4 F Pulse Rate 82 75 68 Respiratory Rate 18 Blood Pressure 128/66 Pulse Oximetry 95 01/13/18 01:00 01/13/18 02:00 01/13/18 03:00 Temperature Pulse Rate 69 83 69 Respiratory Rate Blood Pressure Pulse Oximetry 01/13/18 04:00 01/13/18 05:00 01/13/18 06:00 Temperature 98.2 F Pulse Rate 70 73 65 Respiratory Rate 17 Blood Pressure 134/78 Pulse Oximetry 96 Intake & Output 01/12/18 01/13/18 01/13/18 18:59 06:59 18:59 Intake Total 2390 / 2390 2280 / 2280 Output Total 1300 / 1300 Balance 2390 / 2390 980 / 980 Weight 79 kg Intake: IV 2150 / 2150 1800 / 1800 Nitroglycerin Drip Premix 50 mg 150 / 150 In 250 ml @ Per Protocol IV. CONT TITRATE PRN Rx#:[id number] NS Inj 1,000 ML @ 100 mls/hr IV 2000 / 2000 1700 / 1700 .CONT .Q10H [facility] Rx#:[id number] Magnesium Sulfate Inj 2 GM In 100 / 100 NS Inj 96 ML @ 50 mls/hr IV.SIG ONCE ONE Rx#:[id number] Oral 240 / 240 480 / 480 Output: Urine 1300 / 1300 Other: # Voids 7 Date of Last Bowel Movement 01/11/18 Narrative: GENERAL: Awake, alert, anxious, moderate distress SKIN: Focused skin assessment warm/dry. HEAD: Atraumatic. Normocephalic. EYES: Pupils equal and round. No scleral icterus. No injection or drainage. ENT: No nasal bleeding or discharge. Mucous membranes pink and moist. NECK: Trachea midline. No JVD. CARDIOVASCULAR: Regular rate and rhythm. No murmur appreciated. RESPIRATORY: No accessory muscle use. Clear to auscultation. Breath sounds equal bilaterally. GASTROINTESTINAL: Abdomen soft, non-tender, nondistended. Hepatic and splenic margins not palpable. MUSCULOSKELETAL: No obvious deformities. No clubbing. No cyanosis. No edema. NEUROLOGICAL: Awake and alert. No obvious cranial nerve deficits. Motor grossly within normal limits. Normal speech. PSYCHIATRIC: Appropriate mood and affect; insight and judgment normal. Results - Labs CBC & Chem 7: 01/12/18 13:32 01/12/18 13:32 Laboratory Results - last 24 hr 01/12/18 01/12/18 01/12/18 13:32 13:32 13:32 WBC 8.7 RBC 4.02 L Hgb 12.6 L D Hct 37.0 L MCV 92.0 MCH 31.4 MCHC 34.1 RDW 13.1 Plt Count 261 MPV 8.8 Neut % (Auto) 60.2 Lymph % (Auto) 27.8 [place] % (Auto) 10.2 H Eos % (Auto) 1.3 Baso % (Auto) 0.5 Neut # (Auto) 5.2 Lymph # (Auto) 2.4 [place] # (Auto) 0.9 Eos # (Auto) 0.1 Baso # (Auto) 0.0 WBC Differential . Differential Comment Auto diff final Sodium 138 Potassium 4.1 Chloride 108 H Carbon Dioxide 24.1 Anion Gap 6 BUN 6 L Creatinine 0.92 Estimated GFR 81 L POC Glucose Random Glucose 246 H Calcium 7.7 L D Magnesium 1.8 Triglycerides 173 H Cholesterol 140 LDL Cholesterol, Calc 75 HDL Cholesterol 30.3 L Cholesterol/HDL Ratio 4.62 01/12/18 01/13/18 01/13/18 22:08 02:49 07:56 WBC RBC Hgb Hct MCV MCH MCHC RDW Plt Count MPV Neut % (Auto) Lymph % (Auto) [place] % (Auto) Eos % (Auto) Baso % (Auto) Neut # (Auto) Lymph # (Auto) [place] # (Auto) Eos # (Auto) Baso # (Auto) WBC Differential Differential Comment Sodium Potassium Chloride Carbon Dioxide Anion Gap BUN Creatinine Estimated GFR POC Glucose 196 H 176 H 208 H Random Glucose Calcium Magnesium Triglycerides Cholesterol LDL Cholesterol, Calc HDL Cholesterol Cholesterol/HDL Ratio - Imaging Chest X-Ray 01/11/18 19:03 CONCLUSION: No infiltrate or effusion. Mild interstitial prominence. No prior study for comparison. - Procedures Status post Emergent Cardiac Catheterization Normal left ventricular end diastolic pressure, moderate impaired Ventricular function, STEMI secondary to subacute thrombosis of the distal circumflex vessel now successfully stented with a drug eluting stent, to continue Aspirin and Brilinta, IRINA inhibitor, Beta Alejandra and Statins, and may use Nitroglycerine drip for Hypertension for now. as per Doctor Brad Metz Assessment and Plan - Plan 1. Acute inferior ST segment elevation HI, status post Emergent Cardiac Catheterization Normal left ventricular end diastolic pressure, moderate impaired Ventricular function, STEMI secondary to subacute thrombosis of the distal circumflex vessel now successfully stented with a drug eluting stent, to continue Aspirin and Brilinta, IRINA inhibitor, Beta Alejandra and Statins, and may use Nitroglycerine drip for Hypertension for now. as per Doctor Brad Metz 2. Paroxysmal Atrial Fibrillation at this time persistent, started on Amiodarone by legal document specialist. 3. DM II on hold home medicines continue sliding scale. scheduled dosages of 5 units previous to every meal, Levemir 5 units BID. 4. Medical Non compliance Educated about the importance of his medical management 5. Tobacco dependence strongly recommended to stop smoking. 6. Suspected interstitial Lung disease, Improving. encourage ambulation, continue bronchodilator Mucolytic incentive spirometry DVT prophylaxis with heparin. Code Status: Full code. Discussed Condition With: Patient and nurse miss Salgado Discharge Planning: Once cleared by legal document specialist.
[2018-01-13] MEDS: guaiFENesin 600 MG ER Tablet PO SCH ×2 (09:37→21:07)
[2018-01-13] MEDS: Famotidine PF Inj 20 MG/2 ML Vial IV.PUSH SCH ×2 (09:37→21:08)
[2018-01-13] MEDS: Lisinopril 5 MG Tablet PO SCH (09:37)
[2018-01-13] MEDS: Metoprolol Tartrate 25 MG Tablet PO SCH (09:38)
[2018-01-13] MEDS ORDERED: Amiodarone Inj 150 MG in Dextrose 5% in Water Inj 97 ML IV.SIG ONE ×2 (10:00)
[2018-01-13 18:09] LABS: Hemoglobin A1c 9.3 % (4.3-6.0)
[2018-01-13] MEDS: Insulin Detemir Inj 1,000 UNIT/10 ML Vial SQ SCH (21:10)
[2018-01-14] MEDS: Insulin NovoLOG Aspart Correctional Sugar Inj SQ SCH ×8 (07:07→22:22)
[2018-01-14] MEDS: Heparin - SQ 10,000 UNITS/ML Vial SQ SCH (08:55)
[2018-01-14] MEDS: Famotidine PF Inj 20 MG/2 ML Vial IV.PUSH SCH ×2 (08:56→22:20)
[2018-01-14] MEDS: Metoprolol Tartrate 25 MG Tablet PO SCH ×2 (08:56→22:18)
[2018-01-14] MEDS: guaiFENesin 600 MG ER Tablet PO SCH ×2 (08:56→22:19)
[2018-01-14] MEDS: Lisinopril 5 MG Tablet PO SCH (08:56)
[2018-01-14] MEDS: Insulin Detemir Inj 1,000 UNIT/10 ML Vial SQ SCH ×2 (09:01→22:19)
--- NOTE | 2018-01-14 11:17 | P.PNCA ---
Subjective Interval history: No chest pain Medications and Allergies Active Medications: Active Medications Acetaminophen (Tylenol) 325 mg PO Q4H PRN PRN Reason: PAIN SCALE 1 TO 2 Last Admin: 01/12/18 02:00 Dose: 325 mg Amiodarone HCl (Cordarone) 400 mg PO Q12HR [facility] Apixaban (Eliquis) 5 mg PO BID [facility] Aspirin (Aspirin Chew) 81 mg PO DAILY [facility] Last Admin: 01/14/18 08:57 Dose: 81 mg Atorvastatin Calcium (Lipitor) 40 mg PO DAILY [facility] Last Admin: 01/14/18 08:57 Dose: 40 mg Dextrose (D50w Vial) 50 ml IV.PUSH UNSCH PRN PRN Reason: PER HYPOGLYCEMIA PROTOCOL Famotidine (Pepcid Pf Inj) 20 mg 0.25 mg/kg (20 mg) IV.PUSH Q12HR [facility] Last Admin: 01/14/18 08:56 Dose: 20 mg Glucagon (Glucagon Inj) 1 mg OTHER PRN PRN PRN Reason: for Hypoglycemia Protocol Guaifenesin (Mucinex Er) 600 mg PO BID [facility] Last Admin: 01/14/18 08:56 Dose: 600 mg Heparin Sodium (Porcine) (Heparin Inj) 5,000 units SQ Q8HR [facility] Last Admin: 01/14/18 08:55 Dose: 5,000 units Nitroglycerin/Dextrose (Nitroglycerin Drip Premix) 50 mg in 250 mls @ 0 mls/hr IV.CONT TITRATE PRN; Protocol PRN Reason: Per Protocol Last Titration: 01/12/18 17:00 Dose: Infused Amiodarone HCl 450 mg/ (Dextrose) 250 mls @ 33.33 mls/hr IV.CONT TITRATE [facility]; Protocol Last Titration: 01/14/18 09:07 Dose: 0.5 mg/min, 16.66 mls/hr Insulin Aspart (Novolog Insulin Correctional Sugar Inj) 0 unit SQ 08,12,17,21, 03 [facility]; Protocol Last Admin: 01/14/18 08:57 Dose: 3 unit Insulin Aspart (Novolog Insulin Correctional Sugar Inj) 5 unit SQ TIDAC [facility]; Protocol Last Admin: 01/14/18 08:58 Dose: 5 unit Insulin Detemir (Levemir Inj) 5 unit SQ BID [facility] Last Admin: 01/14/18 09:01 Dose: 5 unit Ipratropium [place] (Atrovent Neb) 0.5 mg NEB Q4HR NEB [facility] Last Admin: 01/14/18 09:33 Dose: Not Given Lisinopril (Prinivil) 10 mg PO DAILY [facility] Last Admin: 01/14/18 08:56 Dose: 10 mg Metoprolol Tartrate (Lopressor) 25 mg PO BID [facility] Last Admin: 01/14/18 08:56 Dose: 25 mg Miscellaneous Information (Misc Info For Pharmacy/Read Comments) 1 each OTHER UNSCH [facility] Ondansetron HCl (Zofran Inj) 4 mg IV.PUSH Q6H PRN PRN Reason: NAUSEA Last Admin: 01/12/18 08:33 Dose: 4 mg Oxycodone/Acetaminophen (Percocet 10/325 Mg) 1 tab PO Q4H PRN PRN Reason: PAIN SCALE 6 TO 10 Oxycodone/Acetaminophen (Percocet 5/325 Mg) 1 tab PO Q4H PRN PRN Reason: PAIN SCALE 3 TO 5 Last Admin: 01/12/18 08:38 Dose: 1 tab Sodium Chloride (Ns Flush) 2 ml IV.FLUSH UNSCH PRN PRN Reason: FLUSH AFTER USING IV ACCESS Sodium Chloride (Ns Flush) 2 ml IV.FLUSH BID [facility] Last Admin: 01/14/18 08:57 Dose: 2 ml Temazepam (Restoril) 15 mg PO HS PRN PRN Reason: INSOMNIA Ticagrelor (Brilinta) 90 mg PO BID [facility] Last Admin: 01/14/18 08:56 Dose: 90 mg Allergies Allergy/AdvReac Type Severity Reaction Status Date / Time No Known Allergies Allergy Verified 01/11/18 19:02 Home Medications Medication Instructions Recorded Confirmed Type No Known Home Medications 01/11/18 01/11/18 History Physical Exam Vital signs: Vital Signs 01/13/18 12:00 01/13/18 13:00 01/13/18 14:00 Temperature 98.7 F Pulse Rate 72 60 66 Respiratory Rate 18 Blood Pressure 138/86 Pulse Oximetry 98 01/13/18 16:00 01/13/18 17:00 01/13/18 18:00 Temperature 98 F Pulse Rate 72 60 66 Respiratory Rate 16 Blood Pressure 132/86 Pulse Oximetry 100 01/13/18 19:00 01/13/18 20:00 01/13/18 20:22 Temperature Pulse Rate 62 84 Respiratory Rate Blood Pressure Pulse Oximetry 100 01/13/18 21:00 01/13/18 22:00 01/13/18 23:00 Temperature Pulse Rate 66 68 56 L Respiratory Rate Blood Pressure Pulse Oximetry 01/14/18 00:00 01/14/18 01:00 01/14/18 02:00 Temperature Pulse Rate 55 L 62 62 Respiratory Rate Blood Pressure Pulse Oximetry 01/14/18 03:00 01/14/18 03:56 01/14/18 04:00 Temperature Pulse Rate 68 63 61 Respiratory Rate 16 Blood Pressure 155/84 H Pulse Oximetry 97 01/14/18 05:00 01/14/18 06:00 01/14/18 07:00 Temperature Pulse Rate 52 L 64 53 L Respiratory Rate Blood Pressure Pulse Oximetry 01/14/18 08:00 01/14/18 09:00 01/14/18 10:00 Temperature 97.6 F Pulse Rate 63 64 66 Respiratory Rate 16 Blood Pressure 123/71 Pulse Oximetry 98 Intake & Output 01/13/18 01/14/18 01/14/18 18:59 06:59 18:59 Intake Total 1500 / 1500 1240 / 1240 50 / 50 Output Total 1200 / 1200 815 / 815 Balance 300 / 300 425 / 425 50 / 50 Weight 79.1 kg Intake: IV 600 / 600 1000 / 1000 50 / 50 Cordarone Inj 450 MG In D5W Inj 50 / 50 241 ML @ 1 MG/MIN 33.33 mls/hr IV.CONT TITRATE [facility] Rx#: [id number] NS Inj 1,000 ML @ 100 mls/hr IV 600 / 600 1000 / 1000 .CONT .Q10H [facility] Rx#:[id number] Oral 900 / 900 240 / 240 Output: Urine 1200 / 1200 815 / 815 Other: Date of Last Bowel Movement 01/13/18 01/13/18 Narrative: GENERAL: Awake, NAD SKIN: Focused skin assessment warm/dry. HEAD: Atraumatic. Normocephalic. NECK: Trachea midline. No JVD. CARDIOVASCULAR: nl S1 and S2 regular rate and rhythm. No murmur appreciated. RESPIRATORY: No accessory muscle use. Clear to auscultation. Breath sounds equal bilaterally. GASTROINTESTINAL: Abdomen soft, non-tender, nondistended. Hepatic and splenic margins not palpable. MUSCULOSKELETAL: No obvious deformities. No clubbing. No cyanosis. No edema. NEUROLOGICAL: Awake and alert. No obvious cranial nerve deficits. Motor grossly within normal limits. Normal speech. PSYCHIATRIC: Appropriate mood and affect; insight and judgment normal. Results 01/12/18 13:32 01/12/18 13:32 Lipids 01/12/18 Range/Units 13:32 Triglycerides 173 H (42-150) mg/dL Cholesterol 140 (120-200) mg/dL HDL Cholesterol 30.3 L (40.0-60.0) mg/dL Cholesterol/HDL Ratio 4.62 Ratio CBC 01/12/18 Range/Units 13:32 WBC 8.7 (4.0-11.0) th/mm3 RBC 4.02 L (4.50-5.90) mil/mm3 Hgb 12.6 L D (13.0-17.0) gm/dL Hct 37.0 L (39.0-51.0) % Plt Count 261 (150-450) th/mm3 Neut # (Auto) 5.2 (1.8-7.7) th/mm3 Lymph # (Auto) 2.4 (1.0-4.8) th/mm3 [place] # (Auto) 0.9 (0.0-0.9) th/mm3 Eos # (Auto) 0.1 (0.0-0.4) th/mm3 Baso # (Auto) 0.0 (0.0-0.2) th/mm3 Comprehensive Metabolic Panel 01/12/18 Range/Units 13:32 Sodium 138 (136-145) meq/L Potassium 4.1 (3.5-5.1) meq/L Chloride 108 H (98-107) meq/L Carbon Dioxide 24.1 (21.0-32.0) meq/L BUN 6 L (7-18) mg/dL Creatinine 0.92 (0.60-1.30) mg/dL Calcium 7.7 L D (8.5-10.1) mg/dL Intake and Output 01/13/18 01/14/18 01/14/18 22:59 06:59 14:59 Intake Total 2500 / 2500 240 / 240 50 / 50 Output Total 1200 / 1200 815 / 815 Balance 1300 / 1300 -575 / -575 50 / 50 Intake: IV 1600 / 1600 50 / 50 Cordarone Inj 450 MG In D5W Inj 50 / 50 241 ML @ 1 MG/MIN 33.33 mls/hr IV.CONT TITRATE [facility] Rx#: [id number] NS Inj 1,000 ML @ 100 mls/hr IV 1600 / 1600 .CONT .Q10H [facility] Rx#:[id number] Oral 900 / 900 240 / 240 Output: Urine 1200 / 1200 815 / 815 Other: Date of Last Bowel Movement 01/13/18 Weight 79.1 kg Assessment and Plan - Assessment (1) ST elevation myocardial infarction (STEMI) of inferior wall Code(s): I21.19 - ST elevation (STEMI) myocardial infarction involving other coronary artery of inferior wall Status: Acute Plan: 01/12/2018 - revascularized with LCX stent. Stent result was good. No other lesions requiring revasc. (2) Stented coronary artery Code(s): Z95.5 - Presence of coronary angioplasty implant and graft Status: Acute (3) Tobacco abuse Code(s): Z72.0 - Tobacco use Status: Acute Plan: Counseled - he states he has quit now (4) Noncompliance Code(s): Z91.19 - Patient's noncompliance with other medical treatment and regimen Status: Acute Plan: Educated on importance of meds/ F/U. (5) Paroxysmal atrial fibrillation Code(s): I48.0 - Paroxysmal atrial fibrillation Status: Acute Plan: Question if this all due to his UT or if he had this before his UT. He is less than 24 hours since revascularization. If it persists will start amiodarone and might need to stop BB to prevent bradycardia. 01/13 Continues to have paroxysms of AF RVR. Start IV amio. 01/14 No further AF on amio. Change amio to PO (6) Interstitial lung disease Code(s): J84.9 - Interstitial pulmonary disease, unspecified Status: Acute Plan: Repeat CXR - Plan If AF remains suppressed possible DC tomorrow For blood thinners: anticipate stopping aspirin at discharge and using Brilinta with Eliquis. Unsafe to switch off Brilinta to clopidogrel this early.
--- NOTE | 2018-01-14 20:57 | P.PNIM ---
Subjective Interval history: No chest pain overnight. Patient has no complaints of shortness of breath. He does not have any other complaints and is looking forward to going home. Physical Exam Vital signs: Vital Signs 01/13/18 21:00 01/13/18 22:00 01/13/18 23:00 Temperature Pulse Rate 66 68 56 L Respiratory Rate Blood Pressure Pulse Oximetry 01/14/18 00:00 01/14/18 01:00 01/14/18 02:00 Temperature Pulse Rate 55 L 62 62 Respiratory Rate Blood Pressure Pulse Oximetry 01/14/18 03:00 01/14/18 03:56 01/14/18 04:00 Temperature Pulse Rate 68 63 61 Respiratory Rate 16 Blood Pressure 155/84 H Pulse Oximetry 97 01/14/18 05:00 01/14/18 06:00 01/14/18 07:00 Temperature Pulse Rate 52 L 64 53 L Respiratory Rate Blood Pressure Pulse Oximetry 01/14/18 08:00 01/14/18 09:00 01/14/18 10:00 Temperature 97.6 F Pulse Rate 63 64 66 Respiratory Rate 16 Blood Pressure 123/71 Pulse Oximetry 98 01/14/18 11:00 01/14/18 12:00 01/14/18 13:00 Temperature 97.9 F Pulse Rate 60 55 L 60 Respiratory Rate 16 Blood Pressure 127/62 Pulse Oximetry 100 01/14/18 14:00 01/14/18 15:00 01/14/18 16:00 Temperature 98.0 F Pulse Rate 58 L 61 63 Respiratory Rate 16 Blood Pressure 132/55 L Pulse Oximetry 99 01/14/18 17:00 01/14/18 18:00 01/14/18 19:29 Temperature Pulse Rate 61 63 Respiratory Rate Blood Pressure Pulse Oximetry 97 Intake & Output 01/14/18 01/14/18 01/15/18 06:59 18:59 06:59 Intake Total 1240 / 1240 1210 / 1210 Output Total 815 / 815 500 / 500 Balance 425 / 425 710 / 710 Weight 79.1 kg Intake: IV 1000 / 1000 250 / 250 Cordarone Inj 450 MG In D5W Inj 250 / 250 241 ML @ 1 MG/MIN 33.33 mls/hr IV.CONT TITRATE CORRY Rx#: [id number] NS Inj 1,000 ML @ 100 mls/hr IV 1000 / 1000 .CONT .Q10H CORRY Rx#:[id number] Oral 240 / 240 960 / 960 Output: Urine 815 / 815 500 / 500 Other: Date of Last Bowel Movement 01/13/18 Narrative: General patient in no acute distress, no complaints of chest pain, no shortness of breath HEENT extraocular movements are intact, clear oropharyngeal mucosa, no JVD Cardiovascular S1-S2 audible, Respiratory clear to auscultation bilaterally Abdomen soft, nontender, nondistended, normal bowel sounds Extremities no edema 2+ distal pulses in bilateral upper and lower extremities Neuro cranial nerves II through XII intact Results - Labs CBC & Chem 7: 01/12/18 13:32 01/12/18 13:32 Laboratory Results - last 24 hr 01/13/18 01/14/18 01/14/18 21:05 03:51 08:17 POC Glucose 218 H 129 H 200 H 01/14/18 01/14/18 11:12 15:28 POC Glucose 172 H 92 - Procedures Status post Emergent Cardiac Catheterization Normal left ventricular end diastolic pressure, moderate impaired Ventricular function, STEMI secondary to subacute thrombosis of the distal circumflex vessel now successfully stented with a drug eluting stent, to continue Aspirin and Brilinta, IRINA inhibitor, Beta Alejandra and Statins, and may use Nitroglycerine drip for Hypertension for now. as per Doctor Brad Metz Assessment and Plan - Plan This patient is a 72-year-old male with diabetes mellitus type 2, hypertension, tobacco abuse, who presented to our emergency department with on and off left- sided chest pain for 2-3 days. He has a history of noncompliance with his medications. The patient presented with chest pain and was found to have a STEMI. 1. STEMI Patient presented with left-sided chest pain. EKG showed ST segment elevation RI in the inferior leads with reciprocal changes. Patient underwent cardiac catheterization which showed thrombosis of the distal circumflex vessel which was stented with a drug-eluting stent. Recommendations are to continue aspirin and Brilinta. He will also be continued on an IRINA inhibitor, beta-alejandra, statin. Cardiology following. Patient currently does not have any complaints of chest pain or shortness of breath. Continue to monitor on telemetry. Patient will likely be discharged tomorrow, however discussed the case with cardiology tomorrow a.m. 2. A. fib with RVR Possibly due to recent STEMI and revascularization. Patient was started on amiodarone by the cardiology team. Continue to monitor on telemetry. On Eliquis. 3. Diabetes mellitus type 2 Continue Levemir 5 units twice daily, continue low-dose sliding scale. 4. Tobacco use. Patient advised to stop smoking. He says he will try to stop smoking. DVT prophylaxis, patient is on Eliquis.
[2018-01-14] MEDS: Amiodarone 200 MG Tablet PO SCH (22:19)
[2018-01-15] MEDS: Insulin NovoLOG Aspart Correctional Sugar Inj SQ SCH ×3 (04:11→08:38)
[2018-01-15 08:03] VITALS: RESP 18; O2SAT 98
[2018-01-15] MEDS: Famotidine PF Inj 20 MG/2 ML Vial IV.PUSH SCH (08:37)
[2018-01-15] MEDS: Lisinopril 5 MG Tablet PO SCH (08:37)
[2018-01-15] MEDS: Amiodarone 200 MG Tablet PO SCH (08:37)
[2018-01-15] MEDS: Metoprolol Tartrate 25 MG Tablet PO SCH (08:37)
[2018-01-15] MEDS: guaiFENesin 600 MG ER Tablet PO SCH (08:38)
[2018-01-15] MEDS: Insulin Detemir Inj 1,000 UNIT/10 ML Vial SQ SCH (08:38)
--- NOTE | 2018-01-15 08:55 | P.PNCA ---
Subjective Interval history: No complaints Medications and Allergies Active Medications: Active Medications Acetaminophen (Tylenol) 325 mg PO Q4H PRN PRN Reason: PAIN SCALE 1 TO 2 Last Admin: 01/12/18 02:00 Dose: 325 mg Amiodarone HCl (Cordarone) 200 mg PO Q12HR [facility] Apixaban (Eliquis) 5 mg PO BID [facility] Last Admin: 01/15/18 08:38 Dose: 5 mg Aspirin (Aspirin Chew) 81 mg PO DAILY [facility] Stop: 01/15/18 10:00 Last Admin: 01/15/18 08:37 Dose: 81 mg Atorvastatin Calcium (Lipitor) 40 mg PO DAILY [facility] Last Admin: 01/15/18 08:37 Dose: 40 mg Dextrose (D50w Vial) 50 ml IV.PUSH UNSCH PRN PRN Reason: PER HYPOGLYCEMIA PROTOCOL Famotidine (Pepcid Pf Inj) 20 mg 0.25 mg/kg (20 mg) IV.PUSH Q12HR [facility] Last Admin: 01/15/18 08:37 Dose: 20 mg Glucagon (Glucagon Inj) 1 mg OTHER PRN PRN PRN Reason: for Hypoglycemia Protocol Guaifenesin (Mucinex Er) 600 mg PO BID [facility] Last Admin: 01/15/18 08:38 Dose: 600 mg Nitroglycerin/Dextrose (Nitroglycerin Drip Premix) 50 mg in 250 mls @ 0 mls/hr IV.CONT TITRATE PRN; Protocol PRN Reason: Per Protocol Last Titration: 01/12/18 17:00 Dose: Infused Insulin Aspart (Novolog Insulin Correctional Sugar Inj) 0 unit SQ 08,12,17,21, 03 [facility]; Protocol Last Admin: 01/15/18 08:38 Dose: Not Given Insulin Aspart (Novolog Insulin Correctional Sugar Inj) 5 unit SQ TIDAC [facility]; Protocol Last Admin: 01/15/18 08:38 Dose: 5 unit Insulin Detemir (Levemir Inj) 5 unit SQ BID [facility] Last Admin: 01/15/18 08:38 Dose: 5 unit Ipratropium [place] (Atrovent Neb) 0.5 mg NEB Q4HR NEB [facility] Last Admin: 01/15/18 03:01 Dose: Not Given Lisinopril (Prinivil) 10 mg PO DAILY [facility] Last Admin: 01/15/18 08:37 Dose: 10 mg Metoprolol Tartrate (Lopressor) 25 mg PO BID [facility] Last Admin: 01/15/18 08:37 Dose: 25 mg Miscellaneous Information (Misc Info For Pharmacy/Read Comments) 1 each OTHER UNSCH [facility] Ondansetron HCl (Zofran Inj) 4 mg IV.PUSH Q6H PRN PRN Reason: NAUSEA Last Admin: 01/12/18 08:33 Dose: 4 mg Oxycodone/Acetaminophen (Percocet 10/325 Mg) 1 tab PO Q4H PRN PRN Reason: PAIN SCALE 6 TO 10 Oxycodone/Acetaminophen (Percocet 5/325 Mg) 1 tab PO Q4H PRN PRN Reason: PAIN SCALE 3 TO 5 Last Admin: 01/12/18 08:38 Dose: 1 tab Sodium Chloride (Ns Flush) 2 ml IV.FLUSH UNSCH PRN PRN Reason: FLUSH AFTER USING IV ACCESS Sodium Chloride (Ns Flush) 2 ml IV.FLUSH BID [facility] Last Admin: 01/15/18 08:39 Dose: 2 ml Temazepam (Restoril) 15 mg PO HS PRN PRN Reason: INSOMNIA Ticagrelor (Brilinta) 90 mg PO BID [facility] Last Admin: 01/15/18 08:37 Dose: 90 mg Allergies Allergy/AdvReac Type Severity Reaction Status Date / Time No Known Allergies Allergy Verified 01/11/18 19:02 Home Medications Medication Instructions Recorded Confirmed Type No Known Home Medications 01/11/18 01/11/18 History Physical Exam Vital signs: Vital Signs 01/14/18 09:00 01/14/18 10:00 01/14/18 11:00 Temperature Pulse Rate 64 66 60 Respiratory Rate Blood Pressure Pulse Oximetry 01/14/18 12:00 01/14/18 13:00 01/14/18 14:00 Temperature 97.9 F Pulse Rate 55 L 60 58 L Respiratory Rate 16 Blood Pressure 127/62 Pulse Oximetry 100 01/14/18 15:00 01/14/18 16:00 01/14/18 17:00 Temperature 98.0 F Pulse Rate 61 63 61 Respiratory Rate 16 Blood Pressure 132/55 L Pulse Oximetry 99 01/14/18 18:00 01/14/18 19:00 01/14/18 19:29 Temperature Pulse Rate 63 62 Respiratory Rate Blood Pressure Pulse Oximetry 97 01/14/18 20:00 01/14/18 21:00 01/14/18 22:00 Temperature Pulse Rate 61 60 60 Respiratory Rate 16 Blood Pressure 141/68 H Pulse Oximetry 98 01/14/18 23:00 01/15/18 00:00 01/15/18 01:00 Temperature Pulse Rate 64 59 L 60 Respiratory Rate 16 Blood Pressure Pulse Oximetry 96 01/15/18 02:00 01/15/18 03:00 01/15/18 04:00 Temperature Pulse Rate 58 L 58 L 57 L Respiratory Rate 18 Blood Pressure Pulse Oximetry 98 01/15/18 05:00 01/15/18 06:00 Temperature Pulse Rate 56 L 54 L Respiratory Rate Blood Pressure Pulse Oximetry Intake & Output 01/14/18 01/15/18 01/15/18 18:59 06:59 18:59 Intake Total 1210 / 1210 240 / 240 Output Total 500 / 500 200 / 200 Balance 710 / 710 40 / 40 Weight 80 kg Intake: IV 250 / 250 Cordarone Inj 450 MG In D5W Inj 250 / 250 241 ML @ 1 MG/MIN 33.33 mls/hr IV.CONT TITRATE CORRY Rx#: [id number] Oral 960 / 960 240 / 240 Output: Urine 500 / 500 200 / 200 Other: Date of Last Bowel Movement 01/15/18 # Bowel Movements 1 Narrative: General patient in no acute distress, no complaints of chest pain, no shortness of breath Neck no JVD Cardiovascular nl S1 nl S2 RRR. Chest: clear to auscultation bilaterally Abdomen soft, nontender, nondistended, normal bowel sounds Extremities no edema Neuro nonfocal Results 01/12/18 13:32 01/12/18 13:32 Intake and Output 01/14/18 01/15/18 01/15/18 22:59 06:59 14:59 Intake Total 960 / 960 240 / 240 Output Total 500 / 500 200 / 200 Balance 460 / 460 40 / 40 Intake: Oral 960 / 960 240 / 240 Output: Urine 500 / 500 200 / 200 Other: Date of Last Bowel Movement 01/13/18 01/15/18 # Bowel Movements 1 Weight 80 kg Assessment and Plan - Assessment (1) ST elevation myocardial infarction (STEMI) of inferior wall Code(s): I21.19 - ST elevation (STEMI) myocardial infarction involving other coronary artery of inferior wall Status: Acute Plan: 01/12/2018 - revascularized with LCX stent. Stent result was good. No other lesions requiring revasc. (2) Stented coronary artery Code(s): Z95.5 - Presence of coronary angioplasty implant and graft Status: Acute Plan: Stop ASA. Cont Brilinta (and Eliquis for PAF) (3) Tobacco abuse Code(s): Z72.0 - Tobacco use Status: Acute Plan: Counseled - he states he has quit now (4) Noncompliance Code(s): Z91.19 - Patient's noncompliance with other medical treatment and regimen Status: Acute Plan: Educated on importance of meds/ F/U. (5) Paroxysmal atrial fibrillation Code(s): I48.0 - Paroxysmal atrial fibrillation Status: Acute Plan: Question if this all due to his PA or if he had this before his PA. He is less than 24 hours since revascularization. If it persists will start amiodarone and might need to stop BB to prevent bradycardia. 01/13 Continues to have paroxysms of AF RVR. Start IV amio. 01/14 No further AF on amio. Change amio to PO 01/15 Change amio to 200 bid. No beta adalberto due to bradycardia (6) Interstitial lung disease Code(s): J84.9 - Interstitial pulmonary disease, unspecified Status: Acute Plan: Repeat CXR - Plan If AF remains suppressed possible DC tomorrow For blood thinners: anticipate stopping aspirin at discharge and using Brilinta with Eliquis. Unsafe to switch off Brilinta to clopidogrel this early. 01/15: stable, DC home
[2018-01-15] MEDS ORDERED: Amiodarone 200 MG Tablet PO SCH (09:00)
[2018-01-15 09:30] VITALS: BP 132/74; TEMP 97.8
--- NOTE | 2018-01-15 09:36 | P.DS ---
Date of admission: 01/11/18 21:21 Primary care physician: UNKNOWN Brief History from admission: This patient is a 72-year-old male with a diagnosis of diabetes mellitus type 2 , hypertension, tobacco abuse. The patient presented to the emergency department with complaints of on and off left-sided chest pain that was ongoing for approximately 3 days. The patient was admitted for an inferior wall STEMI. DS: Medications - Discharge Medications Prescriptions: amiodarone 200 mg PO Q12HR #30 tab apixaban [Eliquis] 5 mg PO BID #60 tab atorvastatin [Lipitor] 40 mg PO DAILY #60 tab lisinopril 10 mg PO DAILY #30 tab ticagrelor [Brilinta] 90 mg PO BID #120 tab DS: Summary Hospital Course: This patient is a 72-year-old male with a diagnosis of diabetes mellitus type 2 , hypertension, tobacco abuse. The patient presented to the emergency department with complaints of on and off left-sided chest pain that was ongoing for approximately 3 days. The patient was admitted for an inferior wall STEMI. 1. Inferior wall STEMI 2. Paroxysmal atrial fibrillation The patient was evaluated in the emergency department. EKG showed ST segment elevation [place] in the inferior leads with reciprocal changes. Troponins were elevated. Patient underwent cardiac catheterization which showed thrombosis of the distal circumflex vessel which was stented with a drug-eluting stent. Cardiology initially had the patient on aspirin, statin, and beta-alejandra. The patient subsequently went into atrial fibrillation with rapid ventricular rate. He was then started on an IV amiodarone drip and then transitioned to p.o. amiodarone. Due to bradycardia cardiology recommended stopping the beta- alejandra and continuing amiodarone. The patient was started on Eliquis for atrial fibrillation. As per cardiology recommendations on discharge the patient will be continued on amiodarone, Eliquis, Brilinta, statin, and aspirin will be stopped. The importance of medication compliance were discussed with the patient in detail. He agrees to take his medications and will follow up this week with a primary care doctor at the [place]. 3. Diabetes mellitus type 2. Patient can continue his home regimen of insulin for diabetes mellitus type 2. 4. Hypertension Continue lisinopril. 5. Tobacco use The patient was counseled on his tobacco use. He says he will stop smoking. - Time Spent with Patient Total time spent providing and/or coordinating discharge services: Greater than 30 minutes - Quality: VTE Deep Vein Thrombosis/Pulmonary Embolism Present on Admission: No Exam Vital signs: Vital Signs 01/14/18 10:00 01/14/18 11:00 01/14/18 12:00 Temperature 97.9 F Pulse Rate 66 60 55 L Respiratory Rate 16 Blood Pressure 127/62 Pulse Oximetry 100 01/14/18 13:00 01/14/18 14:00 01/14/18 15:00 Temperature Pulse Rate 60 58 L 61 Respiratory Rate Blood Pressure Pulse Oximetry 01/14/18 16:00 01/14/18 17:00 01/14/18 18:00 Temperature 98.0 F Pulse Rate 63 61 63 Respiratory Rate 16 Blood Pressure 132/55 L Pulse Oximetry 99 01/14/18 19:00 01/14/18 19:29 01/14/18 20:00 Temperature Pulse Rate 62 61 Respiratory Rate 16 Blood Pressure 141/68 H Pulse Oximetry 97 98 01/14/18 21:00 01/14/18 22:00 01/14/18 23:00 Temperature Pulse Rate 60 60 64 Respiratory Rate Blood Pressure Pulse Oximetry 01/15/18 00:00 01/15/18 01:00 01/15/18 02:00 Temperature Pulse Rate 59 L 60 58 L Respiratory Rate 16 Blood Pressure Pulse Oximetry 96 01/15/18 03:00 01/15/18 04:00 01/15/18 05:00 Temperature Pulse Rate 58 L 57 L 56 L Respiratory Rate 18 Blood Pressure Pulse Oximetry 98 01/15/18 06:00 01/15/18 07:00 Temperature Pulse Rate 54 L 51 L Respiratory Rate Blood Pressure Pulse Oximetry Intake & Output 01/14/18 01/15/18 01/15/18 18:59 06:59 18:59 Intake Total 1210 / 1210 240 / 240 Output Total 500 / 500 200 / 200 Balance 710 / 710 40 / 40 Weight 80 kg Intake: IV 250 / 250 Cordarone Inj 450 MG In D5W Inj 250 / 250 241 ML @ 1 MG/MIN 33.33 mls/hr IV.CONT TITRATE CORRY Rx#: [id number] Oral 960 / 960 240 / 240 Output: Urine 500 / 500 200 / 200 Other: Date of Last Bowel Movement 01/15/18 # Bowel Movements 1 Narrative: General patient in no acute distress, no chest pain HEENT extraocular movements are intact, clear oropharyngeal mucosa, no JVD Cardiovascular S1-S2 audible, RRR, no murmurs rubs or gallops Respiratory clear to auscultation bilaterally Abdomen soft, nontender, nondistended, normal bowel sounds Extremities no edema 2+ distal pulses in bilateral upper and lower extremities Neuro cranial nerves II through XII intact Results Procedures completed during hospitalization: Status post Emergent Cardiac Catheterization Normal left ventricular end diastolic pressure, moderate impaired Ventricular function, STEMI secondary to subacute thrombosis of the distal circumflex vessel now successfully stented with a drug eluting stent, to continue Aspirin and Brilinta, IRINA inhibitor, Beta Alejandra and Statins, and may use Nitroglycerine drip for Hypertension for now. as per Doctor Brad Metz Labs on day of discharge: Labs from last 24 hours 01/15/18 01/14/18 01/14/18 07:56 20:43 15:28 POC Glucose 108 119 H 92 01/14/18 11:12 POC Glucose 172 H - Impressions ITS Impressions Chest X-Ray 01/11/18 19:03 CONCLUSION: No infiltrate or effusion. Mild interstitial prominence. No prior study for comparison. Discharge Plan - Discharge Disposition Patient Disposition: Discharge Home - Discharge Condition Condition: Stable - Discharge Order Discharge Orders: Discharge Order (Routine); Ordered 01/15/18 Ordered By: Estephanie Jeffrey - Physicians Team Primary Care Provider: UNKNOWN, Attending Provider: Estephanie Jeffrey Other Providers: Brad Metz MD
[2018-01-15 10:03] VITALS: PULSE 56
== END 2018-01-15 11:17 | disposition home or self-care (01) ==
LOC: PHED 18:51 → HCIS 19:45 → PHED 19:45 → HCIS 21:21
PROVIDERS: ADMIT Hospitalist; ATTEND Hospitalist